=== PATIENT | male | born 1965 | race Caucasian/White ===

== ENCOUNTER 2018-05-17 18:11 | Emergency (ER) | payer SELFPAY ==
[2015-07-23 15:17] VITALS: Wt 86.2 kg
--- NOTE | 2018-05-17 18:24 | ER Report ---
History and Physical Time Seen By MD: 18:24 Hx. of Stated Complaint: PT HAS NOTICED INCREASED SWELLING IN BILATERAL LEGS FOR LAST COUPLE OF MONTHS, ALSO HAS HORSE VOICE WITH NO REASON HPI/ROS CHIEF COMPLAINT: Swelling to bilateral lower extremities, hoarse voice HISTORY OF PRESENT ILLNESS: 52-year-old male patient presents to emergency room with complaint of swelling to bilateral lower extremities. Patient states that this been going on for the past 3 months. He states he went to urgent care today to get checked out. They did do some lab work and then referred to the patient to the emergency room. He states that he needs to have a CT scan of his chest done. Patient states he's not had any chest pain, denies having shortness of breath. States that he has had a hoarse voice now for quite some time. He states that just came on spontaneously. He does chew chewing tobacco. He states that he does spit and swallow. He denies having any fevers, chills, nausea, vomiting or diarrhea. Patient states that his legs are typically swollen at the end of the day of work. He does work driving heavy equipment. He states that when he wakes the morning typically the swelling is gone. He denies having any persistent swelling, pain or redness in his legs. REVIEW OF SYSTEMS: Respiratory: No cough, no dyspnea. Cardiovascular: No chest pain, no palpitations. Gastrointestinal: No vomiting, no abdominal pain. Musculoskeletal: No back pain. Allergies: Coded Allergies: No Known Allergies (Verified Allergy, Mild, 05/17/18) Home Meds Active Scripts Lorazepam (ATIVAN) 0.5 Mg Tablet, 0.5 MG PO Q6H Y for ANXIETY, #10 TAB 0 Refills Prov:AMERICO ALLEN MD 10/02/15 Omeprazole (OMEPRAZOLE) 20 Mg Capsule.dr, 1 CAP PO BID, #60 CAP 0 Refills Prov:AMERICO ALLEN MD 10/02/15 Sucralfate (CARAFATE) 1 Gm Tablet, 1 GM PO QID, #120 TAB 0 Refills Prov:AMERICO ALLEN MD 10/02/15 Past Medical/Surgical History Patient has a past medical history of esophageal varices, alcohol use. Patient has a surgical history of brain surgery for subdural hematoma. Reviewed Nurses Notes: Yes Hx Smoking: No Smoking Status: Never Smoker Exposure to Second Hand Smoke?: Yes (on occasion) Hx Substance Use Disorder: No Hx Alcohol Use: Yes (4-5 BEERS/DAY) Constitutional Vital Sign - Last 24 Hours 05/17/18 05/17/18 05/17/18 05/17/18 18:26 18:30 18:41 18:56 Pulse 89 76 75 Resp 20 16 10 B/P (MAP) 119/81 (94) Pulse Ox 97 93 94 05/17/18 05/17/18 05/17/18 05/17/18 19:00 19:11 19:26 19:30 Pulse 79 72 Resp 17 20 B/P (MAP) 121/81 (94) 123/83 (96) Pulse Ox 97 94 05/17/18 05/17/18 05/17/18 05/17/18 19:41 20:00 20:05 20:30 Pulse 72 80 Resp 18 22 B/P (MAP) 129/85 (100) 119/79 (92) Pulse Ox 94 98 05/17/18 05/17/18 05/17/18 05/17/18 20:35 20:40 21:00 21:10 Pulse 77 78 91 Resp 25 22 21 B/P (MAP) 134/102 (113) Pulse Ox 95 98 87 Intake and Output 05/17/18 05/17/18 05/18/18 14:59 22:59 06:59 Intake Total 1000 ml Balance 1000 ml Physical Exam General Appearance: The patient is alert, has no immediate need for airway protection and no current signs of toxicity. Respiratory: Chest is non tender, lungs are clear to auscultation. Cardiac: regular rate and rhythm Gastrointestinal: Abdomen is soft and non tender, no masses, bowel sounds normal. Musculoskeletal: Neck: Neck is supple and non tender. Extremities have full range of motion and are non tender. Patient does have trace edema to the bilateral lower extremities, is nonpitting. Skin: No rashes or lesions. DIFFERENTIAL DIAGNOSIS: After history and physical exam differential diagnosis was considered for DVT, PE, dependent edema. Medical Decision Making Data Points Laboratory Hematology Test 05/17/18 00:00 05/17/18 18:50 Troponin I < 0.012 ng/ml Stool Occult Blood (IFOB) Negative (NEGATIVE) Chemistry Test 05/17/18 00:00 05/17/18 18:50 Troponin I < 0.012 ng/ml Stool Occult Blood (IFOB) Negative (NEGATIVE) EKG/Imaging Imaging EXAMINATION: CTA of the chest with IV contrast HISTORY: Elevated d-dimer. TECHNIQUE: Pulmonary embolus protocol - Thin axial CT images of the chest were obtained with IV contrast during maximal pulmonary arterial opacification. Reconstruction of the source data includes multiplanar 2D coronal and sagittal reconstructed images, and 3D coronal and sagittal MIP images. Data Center Manager images have been stored on PACS. One of the following dose optimization techniques was utilized in the performance of this exam: Automated exposure control; adjustment of the mA and/ or kV according to the patient's size; or use of an iterative reconstruction technique. Specific details can be referenced in the facility's radiology CT exam operational policy. Contrast: 75 mL of IV Isovue-370. COMPARISON: None. FINDINGS: Pulmonary arteries: The pulmonary arteries are well opacified, without suspicious filling defect. Heart, aorta, and great vessels: Normal caliber thoracic aorta, without aneurysm or dissection. Normal heart size. No pericardial effusion. Lungs and pleura: Subsegmental atelectasis in the right lower lobe. Slight atelectasis at the left base. Calcified granuloma in the right upper lobe. No suspicious focal consolidation. No pleural effusion or pneumothorax. The central airways are patent. Mediastinum and arnold: Small hiatal hernia. Visualized upper abdomen: Unremarkable. Chest wall: Negative. Bones: Negative. IMPRESSION: 1. No evidence of pulmonary embolism. 2. Mild atelectasis in the lower lungs. No suspicious focal consolidation. 3. No other acute findings in the chest. 4. Small hiatal hernia. Report Dictated By: Chilo Caldwell MD at 05/17/2018 8:25 PM Report E-Signed By: Chilo Caldwell MD at 05/17/2018 8:29 PM EXAMINATION: Bilateral Lower Extremity Venous Ultrasound HISTORY: Leg swelling. TECHNIQUE: Ultrasound evaluation of the bilateral lower extremity veins was performed with color and spectral Doppler and compression views. COMPARISON: None. FINDINGS: The bilateral common femoral, femoral, proximal deep femoral, popliteal, and segmentally visualized deep calf veins are patent and compressible, without evidence of intraluminal thrombus. The upper greater saphenous vein is patent bilaterally. IMPRESSION: No sonographic evidence of DVT in either leg. Report Dictated By: Chilo Caldwell MD at 05/17/2018 9:23 PM Report E-Signed By: Chilo Caldwell MD at 05/17/2018 9:24 PM ED Course/Re-evaluation ED Course Patient was admitted and examined, history and physical were obtained. Differential diagnoses were considered. On examination lungs are clear, heart is regular, abdomen soft nontender. Patient does have trace edema to bilateral lower extremities. I was able to review the labs were done at the urgent care. Patient did have an elevated d-dimer of 2.44, patient was also very anemic with a H&H of 8.7 and 27. Patient is not feeling lightheaded, he is not tachycardic he is not having any shortness of breath. BNP was elevated 217. I believe that is likely the underlying cause of his edema. Due to the elevated d-dimer a CT pulmonary angiogram was done. The results were negative for PE. An occult stool was done for the low H&H. That was also negative. I did get a troponin and EKG. EKG showed a normal sinus rhythm and troponin was negative. An ultrasound was done of the bilateral lower extremities. That was also negative for DVTs. I discussed the findings with the patient. We will go ahead and discharge him home at this time. I do worry about his anemia, however with him being a symptomatically this time I will go ahead and have him follow-up outpatient with Dr. Mello for endoscopy and colonoscopy. I do have concerns about a possible malignancy in the throat with the hoarse voice. I do believe that he needs to have a scoping done by ENT. I will go ahead and refer the patient to Dr. Caldwell, ENT. Patient is return to the emergency room if condition worsens. He is to follow-up with his primary care provider in the next 1-2 weeks. Patient verbalized understanding and agreement with plan. Decision to Disposition Date: May 17, 2018 Decision to Disposition Time: 21:18 Depart Departure Latest Vital Signs Vital Signs Date Time Temp Pulse Resp B/P (MAP) Pulse Ox O2 Delivery O2 Flow Rate FiO2 05/17/18 21:10 91 21 87 05/17/18 21:00 134/102 (113) Impression: Primary Impression: Dependent edema Condition: Improved Disposition: HOME OR SELF-CARE Referrals: CHILO CALDWELL JR, MD, JOHN A MD Patient Instructions: Leg Edema (ED) Additional Instructions: Increase exercise when you are at work. Wear the compression stockings when you are at work. I would like you to follow up with Dr. Mello for your anemia. Follow up with Dr. Caldwell, ENT, for your hoarse voice. Return to the ER if condition worsens. VALDEMAR APPIAH [facility] May 17, 2018 18:24
[2018-05-17] MEDS ORDERED: NS(*) 0.9% 1000 ML BAG 1,000 ML IV ONE (18:41)
[2018-05-17] MEDS ORDERED: IOPAMIDOL 76% 75 ML INFUS BTL 75 ML ONE (19:03)
[2018-05-17] MEDS ORDERED: NS 0.9% 25 ML BAG 50 ML ONE (19:03)
--- NOTE | 2018-05-17 19:16 | EKG ---
FACILITY: [facility] [place] PATIENT NAME: MARK ROJO : [id number] MR: [id number] V: [id number] EXAM DATE: ORDERING PHYSICIAN: VALDEMAR APPIAH TECHNOLOGIST: MAILE Lyn Reason : CARDIAC Blood Pressure : / mmHG Vent. Rate : 077 BPM Atrial Rate : 077 BPM P-R Int : 216 ms QRS Dur : 088 ms QT Int : 398 ms P-R-T Axes : 025 -23 007 degrees QTc Int : 450 ms Sinus rhythm with 1st degree AV block Left axis deviation Abnormal ECG When compared with ECG of 21-JUL-2015 12:50, [place] interval has increased Confirmed by SHIV SCOTT ([id number]) on 05/18/2018 6:15:16 AM Referred By: Confirmed By:SHIV SCOTT
--- NOTE | 2018-05-17 20:33 | RADIOLOGY IMAGING REPORT ---
FACILITY: [facility] PATIENT NAME: Sim Alba : 1965 MR: [id number] V: [id number] EXAM DATE: ORDERING PHYSICIAN: VALDEMAR APPIAH TECHNOLOGIST: Location: [facility] Patient: Sim Alba : 1965 Visit/Account:[id number] Date of Sevice: 05/17/2018 EXAMINATION: CTA of the chest with IV contrast HISTORY: Elevated d-dimer. TECHNIQUE: Pulmonary embolus protocol - Thin axial CT images of the chest were obtained with IV con trast during maximal pulmonary arterial opacification. Reconstruction of the source data includes mul tiplanar 2D coronal and sagittal reconstructed images, and 3D coronal and sagittal MIP images. Repres entative images have been stored on PACS. One of the following dose optimization techniques was utilized in the performance of this exam: Autom ated exposure control; adjustment of the mA and/or kV according to the patient's size; or use of an i terative reconstruction technique. Specific details can be referenced in the facility's radiology C T exam operational policy. Contrast: 75 mL of IV Isovue-370. COMPARISON: None. FINDINGS: Pulmonary arteries: The pulmonary arteries are well opacified, without suspicious filling defect. Heart, aorta, and great vessels: Normal caliber thoracic aorta, without aneurysm or dissection. Norm al heart size. No pericardial effusion. Lungs and pleura: Subsegmental atelectasis in the right lower lobe. Slight atelectasis at the left b ase. Calcified granuloma in the right upper lobe. No suspicious focal consolidation. No pleural effus ion or pneumothorax. The central airways are patent. Mediastinum and arnold: Small hiatal hernia. Visualized upper abdomen: Unremarkable. Chest wall: Negative. Bones: Negative. IMPRESSION: 1. No evidence of pulmonary embolism. 2. Mild atelectasis in the lower lungs. No suspicious focal consolidation. 3. No other acute findings in the chest. 4. Small hiatal hernia. Report Dictated By: Chilo Head MD at 05/17/2018 8:25 PM Report E-Signed By: Chilo Head MD at 05/17/2018 8:29 PM [id number]
[2018-05-17 21:00] VITALS: BP 134/102
--- NOTE | 2018-05-17 21:29 | RADIOLOGY IMAGING REPORT ---
FACILITY: [facility] - [place] PATIENT NAME: Sim Alba : 1965 MR: [id number] V: [id number] EXAM DATE: ORDERING PHYSICIAN: VALDEMAR APPIAH TECHNOLOGIST: Location: [facility] - [place] Patient: Sim Alba : 1965 Visit/Account:[id number] Date of Sevice: 05/17/2018 EXAMINATION: Bilateral Lower Extremity Venous Ultrasound HISTORY: Leg swelling. TECHNIQUE: Ultrasound evaluation of the bilateral lower extremity veins was performed with color and spectral Doppler and compression views. COMPARISON: None. FINDINGS: The bilateral common femoral, femoral, proximal deep femoral, popliteal, and segmentally visualized d eep calf veins are patent and compressible, without evidence of intraluminal thrombus. The upper gre ater saphenous vein is patent bilaterally. IMPRESSION: No sonographic evidence of DVT in either leg. Report Dictated By: Chilo Head MD at 05/17/2018 9:23 PM Report E-Signed By: Chilo Head MD at 05/17/2018 9:24 PM [id number]
== END 2018-05-17 21:35 | disposition home or self-care (01) ==
LOC: ER 19:29
DX: R60.9 Edema, unspecified (principal); I44.0 Atrioventricular block, first degree
CPT/HCPCS: 82274; 84484; 93005; 96360; 99284; J7030; Q9967; 71275; 93970

== ENCOUNTER → 2018-05-17 | Outpatient (REF) | payer SELFPAY ==
[2015-07-23 15:17] VITALS: BMI 21.2
[~2018-05-17] MED LIST: AZIT500T47 PO; HYCOTUSS; IBU800 PO; LOR5 PO; LORA-1455 PO; OMEP-125 PO; PANT40TA65 PO; SUCR1TAB51 PO; SUCR1TAB85 PO
[2018-05-17 12:21] LABS: PLATELET COUNT, AUTOMATED 214 K/uL (150-450)
== END ==
PROVIDERS: ATTEND Family Medicine
DX: R19.07 Generalized intra-abdominal and pelvic swelling, mass and lump (principal); R60.0 Localized edema
CPT/HCPCS: 82040; 82247; 82310; 82374; 82435; 82565; 82947; 83880; 84075; 84132; 84155; 84295; 84450; 84460; 84520; 85025; 85379

== ENCOUNTER 2018-12-18 21:19 | Inpatient (IN) | payer SELFPAY ==
[~2018-12-18] VITALS: Ht 190.5 cm; Wt 98.0 kg
[~2018-12-18 21:19] MED LIST changes: -FURO-47 PO; -LACT10SO62 PO; -POTA-53 PO; -SPIR100T33 PO; -THIA100T20 PO
--- NOTE | 2018-12-18 21:36 | ER Report ---
History and Physical Time Seen By MD: 21:25 Hx. of Stated Complaint: weakness, jaundice, swelling. HPI/ROS CHIEF COMPLAINT: Jaundice, confusion, weakness HISTORY OF PRESENT ILLNESS: 53-year-old male with a history of alcoholic liver disease and varices last seen in May 2018. Brought in by EMS tonight after family became concerned because he seems altered and became more jaundiced over the last few days. He admits to consuming several beers today. She was incontinent of stool. He denies melena or bloody stools. REVIEW OF SYSTEMS: Respiratory: No cough, no dyspnea. Cardiovascular: No chest pain, no palpitations. Gastrointestinal: No vomiting, no abdominal pain. Musculoskeletal: No back pain. Allergies: Coded Allergies: No Known Allergies (Verified Allergy, Mild, 05/17/18) Home Meds Discontinued Scripts Lorazepam (ATIVAN) 0.5 Mg Tablet, 0.5 MG PO Q6H PRN for ANXIETY, #10 TAB 0 Refills Prov:AMERICO ALLEN MD 10/02/15 Omeprazole (OMEPRAZOLE) 20 Mg Capsule.dr, 1 CAP PO BID, #60 CAP 0 Refills Prov:AMERICO ALLEN MD 10/02/15 Sucralfate (CARAFATE) 1 Gm Tablet, 1 GM PO QID, #120 TAB 0 Refills Prov:AMERICO ALLEN MD 10/02/15 Reviewed Nurses Notes: Yes Old Medical Records Reviewed: Yes Hx Smoking: No Smoking Status: Never Smoker Exposure to Second Hand Smoke?: Yes (on occasion) Hx Substance Use Disorder: No Hx Alcohol Use: Yes (4-5 BEERS/DAY) Constitutional Vital Sign - Last 24 Hours 12/18/18 12/18/18 12/18/18 12/18/18 21:23 21:24 21:30 21:30 Temp 100.6 Pulse 97 Resp 22 B/P (MAP) 152/90 (110) 152/90 143/87 (105) Pulse Ox 85 O2 Delivery Room Air O2 Flow Rate 3.0 12/18/18 12/18/18 12/18/18 12/18/18 21:49 22:00 22:05 22:30 Pulse 92 190 B/P (MAP) 143/99 (114) 132/84 (100) Pulse Ox 94 12/18/18 12/18/18 12/18/18 12/18/18 22:35 23:00 23:05 23:30 Pulse 97 92 B/P (MAP) 133/80 (97) 133/85 (101) Pulse Ox 95 94 12/18/18 23:35 Pulse 92 Pulse Ox 94 Intake and Output 12/18/18 12/18/18 12/19/18 15:00 23:00 07:00 Intake Total 100 ml Balance 100 ml Physical Exam Vital signs stable, hypoxic, pulse ox 85% on room air, febrile, temperature 100.4 General Appearance: The patient is alert, has no immediate need for airway protection and no current signs of toxicity. Mild confusion, grossly jaundiced appearing, ascites noted in belly HEENT: Pupils equal and round no injection. Icteric sclera, oropharynx with fetid odor. Respiratory: Chest is non tender, lungs are clear to auscultation. Cardiac: regular rate and rhythm Gastrointestinal: Abdomen is soft and non tender, no masses, bowel sounds normal. Musculoskeletal: Neck: Neck is supple and non tender. Extremities have full range of motion and are non tender., 3+ edema bilaterally Skin: No rashes or lesions. DIFFERENTIAL DIAGNOSIS: After history and physical exam differential diagnosis was considered for adult fever including but not limited to viral syndromes including influenza, urinary tract infection, pneumonia and sepsis. End-stage alcoholic liver disease, SBP, elevated ammonia level Medical Decision Making Data Points Result Diagram: 12/19/18 1459 12/19/18 0518 Laboratory Hematology Test 12/18/18 21:20 12/18/18 22:27 12/18/18 22:30 12/18/18 22:34 Ovalocytes 1+ Schistocytes 1+ Activated Partial Thromboplast Time 48 seconds (23-35) Ammonia 27 UMOL/L (9-33) Amylase Level 41 U/L (0-110) Lipase 326 U/L (23-300) Serum Alcohol 103 mg/dl Body Fluid Type ascites Body Fluid WBC 72 Body Fluid RBC 6534 Body Fluid Neutrophils 11 % Body Fluid Lymphocytes 25 % Body Fluid Monocytes 64 % Body Fluid Glucose 94 mg/dl Body Fluid Total Protein < 2.0 G/dl Stool Occult Blood (IFOB) Negative (NEGATIVE) Urine Color Radha Urine Clarity Clear Urine pH 6.0 pH (4.8-9.5) Urine Specific [place] 1.015 Urine Protein Negative mg/dL (NEGATIVE) Urine Glucose (UA) Negative mg/dL (NEGATIVE) Urine Ketones Negative mg/dL (NEGATIVE) Urine Blood Negative (NEGATIVE) Urine Nitrite Negative (NEGATIVE) Urine Bilirubin Negative (NEGATIVE) Urine Urobilinogen 4.0 mg/dL (0.2-1.9) Urine Leukocyte Esterase Negative (NEGATIVE) Urine RBC 1 /HPF (0-2/HPF) Urine WBC 2 /HPF (0-5/HPF) Urine Squamous Epithelial Cells Few /LPF (</=FEW) Urine Bacteria Negative /HPF (NONE-FEW) Urine Mucus None /HPF (NONE-FEW) Chemistry Test 12/18/18 21:20 12/18/18 22:27 12/18/18 22:30 12/18/18 22:34 Ovalocytes 1+ Schistocytes 1+ Activated Partial Thromboplast Time 48 seconds (23-35) Ammonia 27 UMOL/L (9-33) Amylase Level 41 U/L (0-110) Lipase 326 U/L (23-300) Serum Alcohol 103 mg/dl Body Fluid Type ascites Body Fluid WBC 72 Body Fluid RBC 6534 Body Fluid Neutrophils 11 % Body Fluid Lymphocytes 25 % Body Fluid Monocytes 64 % Body Fluid Glucose 94 mg/dl Body Fluid Total Protein < 2.0 G/dl Stool Occult Blood (IFOB) Negative (NEGATIVE) Urine Color Radha Urine Clarity Clear Urine pH 6.0 pH (4.8-9.5) Urine Specific [place] 1.015 Urine Protein Negative mg/dL (NEGATIVE) Urine Glucose (UA) Negative mg/dL (NEGATIVE) Urine Ketones Negative mg/dL (NEGATIVE) Urine Blood Negative (NEGATIVE) Urine Nitrite Negative (NEGATIVE) Urine Bilirubin Negative (NEGATIVE) Urine Urobilinogen 4.0 mg/dL (0.2-1.9) Urine Leukocyte Esterase Negative (NEGATIVE) Urine RBC 1 /HPF (0-2/HPF) Urine WBC 2 /HPF (0-5/HPF) Urine Squamous Epithelial Cells Few /LPF (</=FEW) Urine Bacteria Negative /HPF (NONE-FEW) Urine Mucus None /HPF (NONE-FEW) Coagulation Test 12/18/18 21:20 Activated Partial Thromboplast Time 48 seconds Toxicology Test 12/18/18 21:20 Serum Alcohol 103 mg/dl Urinalysis Test 12/18/18 22:34 Urine Color Radha Urine Clarity Clear Urine pH 6.0 pH (4.8-9.5) Urine Specific [place] 1.015 Urine Protein Negative mg/dL (NEGATIVE) Urine Glucose (UA) Negative mg/dL (NEGATIVE) Urine Ketones Negative mg/dL (NEGATIVE) Urine Blood Negative (NEGATIVE) Urine Nitrite Negative (NEGATIVE) Urine Bilirubin Negative (NEGATIVE) Urine Urobilinogen 4.0 mg/dL (0.2-1.9) Urine Leukocyte Esterase Negative (NEGATIVE) Urine RBC 1 /HPF (0-2/HPF) Urine WBC 2 /HPF (0-5/HPF) Urine Squamous Epithelial Cells Few /LPF (</=FEW) Urine Bacteria Negative /HPF (NONE-FEW) Urine Mucus None /HPF (NONE-FEW) Microbiology Microbiology Date/Time Source Procedure Growth Status 12/18/18 21:57 Blood Peripheral Draw Blood Culture - Preliminary NO GROWTH AFTER 1 DAY, REINCUBATED Resulted 12/18/18 21:45 Blood Peripheral Draw Blood Culture - Preliminary NO GROWTH AFTER 1 DAY, REINCUBATED Resulted 12/18/18 22:27 Ascites Fluid Gram Stain - Final Resulted 12/18/18 22:27 Ascites Fluid Body Fluid Culture - Preliminary NO GROWTH SO FAR, SET LATE. REINCUBATED Resulted 12/18/18 22:27 Ascites Fluid Anaerobic Culture Pending Resulted EKG/Imaging Imaging X-ray: Single view portable chest x-ray was obtained. I viewed the images myself on the PACS system. My interpretation of the images is: No infiltrate, no effusion, elevated right hemidiaphragm,? Fluid in the right fissure. comparison to previous chest x-ray dated 01/02/08. The radiologist interpretation had no clinically significant variation from this interpretation. ED Course/Re-evaluation Clinical Indication for ER IV: IV Access ED Course Patient was admitted to an examination room. H&P was done. The differential diagnoses was considered. On clinical examination. Patient with gross ascites, fever and jaundice. His H&H is low at 6.6 and 21.9. His lactate is elevated to 4.8. I'm concerned he has sepsis. The source is unclear. His chest x-ray shows no obvious infiltrate. Patient denies urinary tract symptoms. A urinalysis is yet to be obtained. Patient is hypoxic acquiring 3 L to get his saturations in the low 90s. He is gross abdominal distention with tense ascites likely restricting his respiratory functional capacity. 12/18/2018 10:33:55 pm Procedure: Paracentesis. Indication: Diagnostic ascites fluid collection for SBP After written informed consent I performed a paracentesis. I explained to the patient the risk included infection, bleeding, bowel injury, and hypotension. The area on the abdomen was prepped and draped in the usual fashion. The area was anesthetized with 1% lidocaine with epinephrine with adequate anesthesia. With a paracentesis needle the left lower quadrant was aspirated. The appear ance of the fluid was straw-colored yellow, slightly cloudy. The volume that was aspirated was 60 mL cc of fluid. The patient tolerated the procedure well. There were no complications. The procedure was performed by myself. 12/18/2018 10:50:58 pm case was discussed with Dr. Flannery hospitalist on-call, who accepts the patient for admission to ICU for close monitoring . He has suspected sepsis with a lactate of 4.8, gross anemia, likely a GI bleed. Decision to Disposition Date: Dec 18, 2018 Decision to Disposition Time: 22:04 Critical Care Time I spent a total of 90 minutes of critical care time in obtaining history, performing a physical exam, bedside monitoring of interventions, collecting and interpreting tests and discussion with consultants but not including time spent performing procedures. Depart Departure Latest Vital Signs Vital Signs Date Time Temp Pulse Resp B/P (MAP) Pulse Ox O2 Delivery O2 Flow Rate FiO2 12/18/18 23:35 92 94 12/18/18 23:30 133/85 (101) 12/18/18 21:30 3.0 12/18/18 21:24 100.6 22 Room Air Impression: Primary Impression: Altered mental status, unspecified Additional Impressions: Fever Anemia Acute on chronic alcoholic liver disease History of esophageal varices Coagulopathy Condition: Improved Disposition: Admitted from ER New Scripts No Active Prescriptions or Reported Meds Problem Qualifiers Primary Impression: Altered mental status, unspecified Altered mental status type: stupor Qualified Codes: R40.1 - Stupor Additional Impressions: Fever Fever type: unspecified Qualified Codes: R50.9 - Fever, unspecified Anemia Anemia type: unspecified type Qualified Codes: D64.9 - Anemia, unspecified DARNELL VALENTINE DO Dec 18, 2018 21:35
[2018-12-18 21:58] LABS: INR 2.46
[2018-12-18 22:11] LABS: PLATELET COUNT, AUTOMATED 117 K/uL (150-450)
[2018-12-18] MEDS ORDERED: PANTOPRAZOLE SOD(*)40 MG VIAL 80 MG in NS(*) 0.9% 100 ML BAG 100 ML IVPB ONE (22:20)
--- NOTE | 2018-12-18 22:31 | RADIOLOGY IMAGING REPORT ---
FACILITY: [facility] PATIENT NAME: Sim Alba : 1965 MR: [id number] V: [id number] EXAM DATE: ORDERING PHYSICIAN: DARNELL VALENTINE TECHNOLOGIST: Location: [facility] [place] Patient: Sim Alba : 1965 Visit/Account:[id number] Date of Sevice: 12/18/2018 PORTABLE CHEST: Indication: Fever and altered mental status. Technique: A single frontal film was obtained. Comparison: CT scan dated 05/17/2018. Skeletal and soft tissue structures: Intact and unremarkable. Heart and mediastinum: Within normal limits. Lung [place]oria: There is chronic elevation of the right hemidiaphragm, with minimal atelectasis at the r ight base. No acute parenchymal process is identified. There is no vascular congestion. Pleural spaces: Unremarkable. Impression: No acute process. Report Dictated By: Anthony Jackson MD at 12/18/2018 10:23 PM Report E-Signed By: Anthony Jackson MD at 12/18/2018 10:27 PM [id number]
[2018-12-18] MEDS: PANTOPRAZOLE SOD(*)40 MG VIAL 80 MG in NS(*) 0.9% 100 ML BAG 100 ML IV SCH (22:38)
[2018-12-19] VITALS (41 sets, daily range): BP systolic 122–152; BP diastolic 75–99; BMI 27.0
[2018-12-19] MEDS ORDERED: cefTRIAXone 2 GM VIAL IVP SCH ×2 (00:40→23:00)
[2018-12-19] MEDS ORDERED: ALBUMIN HUMAN 5% 250 ML BTL 250 ML IVPB ONE (00:40)
[2018-12-19] MEDS ORDERED: INFLUENZA VIRUS VAC 0.5ML SYR IM ONLY ONE (00:55)
[2018-12-19] MEDS ORDERED: LORazepam 1 MG TAB PO PRN (01:00)
[2018-12-19] MEDS ORDERED: LORazepam 2 MG/ML VIAL IVP PRN (01:00)
--- NOTE | 2018-12-19 01:03 | History & Physical ---
History of Present Illness Chief Complaint Altered mental status History of Present Illness This patient was brought to the emergency room after his girlfriend called EMS because of altered mental status. The have also noted that he has been more jaundice over the last several days. History Problems: (1) GI bleeding Status: Acute (2) History of esophageal varices Status: Acute Home Meds Discontinued Scripts Lorazepam (ATIVAN) 0.5 Mg Tablet, 0.5 MG PO Q6H PRN for ANXIETY, #10 TAB 0 Refills Prov:AMERICO ALLEN MD 10/02/15 Omeprazole (OMEPRAZOLE) 20 Mg Capsule.dr, 1 CAP PO BID, #60 CAP 0 Refills Prov:AMERICO ALLEN MD 10/02/15 Sucralfate (CARAFATE) 1 Gm Tablet, 1 GM PO QID, #120 TAB 0 Refills Prov:AMERICO ALLEN MD 10/02/15 Allergies: Coded Allergies: No Known Allergies (Verified Allergy, Mild, 05/17/18) Hx Smoking: No Smoking Status: Never Smoker Exposure to Second Hand Smoke?: Yes (on occasion) Caffeine Intake: Coffee, Soda Caffeine/Cups Per Day: 2 Hx Alcohol Use: Yes (4-5 BEERS/DAY) Hx Substance Use Disorder: No Review of Systems All Systems Reviewed/Normal: Yes, Except as Noted Neurological: Confusion Exam Vital Signs Vital Signs Date Time Temp Pulse Resp B/P (MAP) Pulse Ox O2 Delivery O2 Flow Rate FiO2 12/18/18 23:35 92 94 12/18/18 23:30 133/85 (101) 12/18/18 21:24 100.6 22 Room Air Neuro: No Gross deficits Eyes: PERRLA Cardiovascular: Regular Rate and Rhythm Respiratory: Clear to Auscultation GI: Other (Distended.) Extremities: Edema Integumentary: Jaundice; No Cyanosis Medical Decision Making Data Points Result Diagram: 12/18/18211912/18/182119 Assessment and Plan Problems: (1) GI bleeding Status: Acute Assessment & Plan: He does have a history of varices, but reports no active bleeding. He has been started on a Protonix infusion. (2) Anemia due to GI blood loss Assessment & Plan: He is scheduled to receive 2 units of red cells. Two additional units have been crossed. (3) Bacterial peritonitis Assessment & Plan: He did have a fever and confusion on admission. We have started him on empiric treatment with ceftriaxone and albumin. Ascitic fluid has been sent for analysis. (4) Acute on chronic alcoholic liver disease Status: Acute Assessment & Plan: He does appear to have end stage liver disease. He has been placed on CIWA protocol and thiamine replacement. (5) Coagulopathy Status: Acute Assessment & Plan: Secondary to liver disease. (6) Hyponatremia Status: Resolved Assessment & Plan: A repeat chemistry panel is ordered for the morning. (7) Hoarseness Assessment & Plan: He was advised to follow up with ENT during his last ER admission. He never did follow up. We may need to consider a CT scan or ENT consult depending on his course. Venous Thromboembolism Antithrombotics Is Pt On Any Antithrombotics?: No Exam Sepsis Risk: No Definite Risk RADHA LI DO Dec 19, 2018 01:03
[2018-12-19] MEDS: NS(*) 0.9% 500 ML BAG 500 ML IV PRN ×3 (02:17→09:12)
[2018-12-19] MEDS: PANTOPRAZOLE SOD(*)40 MG VIAL 80 MG in NS(*) 0.9% 100 ML BAG 100 ML IV SCH ×2 (03:00→14:43)
[2018-12-19 05:27] LABS: PLATELET COUNT, AUTOMATED 86 K/uL (150-450)
[2018-12-19 05:36] LABS: INR 2.86
[2018-12-19] MEDS ORDERED: MAGNESIUM SUL* 2 GM/50 ML IVPB 50 ML IVPB ONE (06:35)
[2018-12-19] MEDS: THIAMINE HCL 200 MG/2 ML INJ IVP SCH (09:14)
[2018-12-19] MEDS: FOLIC ACID 1 MG TAB PO SCH (10:22)
--- NOTE | 2018-12-19 10:57 | RADIOLOGY IMAGING REPORT ---
FACILITY: [facility] PATIENT NAME: Sim Alba : 1965 MR: [id number] V: [id number] EXAM DATE: ORDERING PHYSICIAN: DAJA CARRILLO TECHNOLOGIST: Location: [facility] Patient: Sim Alba : 1965 Visit/Account:[id number] Date of Sevice: 12/19/2018 LIVER History: Elevated bilirubin. Increased abdominal girth. Evaluate for ascites. Comparison study: None Procedure: There has been satisfactory and complete grayscale ultrasonic evaluation of the abdomen. Findings: Liver: The liver has diffusely increased echotexture suggestive of fatty infiltration. There is ascit es throughout the abdomen. There appears to be hepatopedal blood flow in the main portal vein but it is not optimally demonstrated. Biliary: The gallbladder is normal and there is no gallstone disease or biliary ductal dilatation. T he sonographic Bloom sign is negative. The common bile duct cannot be seen for accurate measurement but there is no extrahepatic dilatation so far as visualized. Pancreas: The pancreas is obscured due to ascites, increased echotexture of the liver and overlying b owel gas. Kidneys: There is no hydronephrosis on the right side. Aorta and IVC: Flow is identified in both the aorta and IVC. IMPRESSION: 1. Increased echotexture of the liver suggestive of cirrhosis and/or fatty infiltration. Note that th e portal vein appears to have hepatopedal blood flow. 2. Normal-appearing gallbladder. Note, bile duct cannot be seen. 3. Moderate ascites. Report Dictated By: Sanjay Prasad MD at 12/19/2018 10:51 AM Report E-Signed By: Sanjay Prasad MD at 12/19/2018 10:52 AM WSN:[id number]
--- NOTE | 2018-12-19 13:13 | Hospitalist Progress Note ---
Subjective Progress Notes Subjective 53M admitted for AMS, jaundice, fever. BERENICE overnight, no confusion this am, + asterixis. Denies abdominal pain, no further fever. Patient Complains of: Neurological: No: Syncope Respiratory: No: Cough Gastrointestinal: No Nausea, No Vomiting Physical Exam Vital Signs Date Time Temp Pulse Resp B/P (MAP) Pulse Ox O2 Delivery O2 Flow Rate FiO2 12/19/18 12:26 98.6 94 23 139/83 12/19/18 11:12 92 Nasal Cannula 2.0 Intake and Output 12/19/18 07:00 Intake Total 960 ml Output Total 550 ml Balance 410 ml Intake IV Total 460 ml Blood Product 500 ml Output Urine Total 550 ml General Appearance: Awake, No Acute Distress, Afebrile Neuro: No Gross deficits (+ asterixis) Respiratory: No Respiratory Distress GI: Other (+ fluid wave, dull to percussion, protuberant) Extremities: Soft and Non Tender, Warm, Pulses, Perfused, Edema Integumentary: Jaundice (+ spider hemangiomas) Result Diagram: 12/19/1851712/19/18517 Assessment and Plan Problems: (1) Acute on chronic alcoholic liver disease Status: Acute Assessment & Plan: He does appear to have end stage liver disease. He has been placed on CIWA protocol and thiamine replacement. US shows evidence of cirrhosis. Hepatitis panel pending. (2) GI bleeding Status: Acute Assessment & Plan: He does have a history of varices, but reports no active bleeding. He has been started on a Protonix infusion. (3) Fever Status: Acute Assessment & Plan: Resolved, likely due to viral infection. He did have a fever and confusion on admission. No focal signs of infection. Was started him on empiric treatment with ceftriaxone and albumin. Ascitic fluid does not appear to be infected, will discontinue antibiotic and observe. (4) Anemia due to GI blood loss Assessment & Plan: Post 4U PRBC no active bleeding. Will need colonoscopy to further evaluate. (5) Coagulopathy Status: Acute Assessment & Plan: Secondary to liver disease. (6) Hyponatremia Status: Resolved Assessment & Plan: Chronic, secondary to liver disease. (7) Hoarseness Assessment & Plan: He was advised to follow up with ENT during his last ER admission. He never did follow up. We may need to consider a CT scan or ENT consult depending on his course. Exam Sepsis Risk: Severe Sepsis Risk Problem Qualifiers (1) Fever: Fever type: unspecified Qualified Codes: R50.9 - Fever, unspecified DAJA HEATON DO Dec 19, 2018 13:13
[2018-12-19] MEDS ORDERED: LACTULOSE 10 GM/15 ML UDCUP PO ONE (15:00)
[2018-12-20] VITALS (24 sets, daily range): BP systolic 91–133; BP diastolic 60–85; Ht 190.5 cm; Wt 98.0 kg
[2018-12-20] MEDS: PANTOPRAZOLE SOD(*)40 MG VIAL 80 MG in NS(*) 0.9% 100 ML BAG 100 ML IV SCH ×3 (00:54→21:25)
[2018-12-20 05:22] LABS: PLATELET COUNT, AUTOMATED 76 K/uL (150-450)
[2018-12-20] MEDS: NS(*) 0.9% 500 ML BAG 500 ML IV PRN ×2 (05:53→21:25)
--- NOTE | 2018-12-20 08:40 | Hospitalist Progress Note ---
Subjective Progress Notes Subjective Patient is awake and alert. No fever. No appetite. Physical Exam Vital Signs Date Time Temp Pulse Resp B/P (MAP) Pulse Ox O2 Delivery O2 Flow Rate FiO2 12/20/18 06:12 76 14 127/77 (94) 92 Nasal Cannula 3.0 12/20/18 04:01 97.8 Intake and Output 12/20/18 06:59 Intake Total 2177 ml Output Total 1325 ml Balance 852 ml Intake Oral 450 ml IV Total 1227 ml Blood Product 500 ml Output Urine Total 1325 ml # Voids 1 General Appearance: Alert, Awake Neuro: No Gross deficits Eyes: Other (sclera icteric ) Cardiovascular: Regular Rate and Rhythm Respiratory: Other (scattered rhonchi and soft expiratory wheezes) Chest: No Tenderness GI: Other (Distended, but soft/nontender. Rare BS. Fluid wave is present.) : No CVA Tenderness Extremities: Warm, Perfused, Edema (2+ both LE) Psych: Alert & Oriented X3 Result Diagram: 12/20/1844412/20/18444 Assessment and Plan Problems: (1) Acute on chronic alcoholic liver disease Status: Acute Assessment & Plan: He does appear to have end-stage liver disease at this point. Most likely cause is chronic alcoholism. Viral and iron studies are pending. He has been placed on CIWA protocol and thiamine replacement. US shows evidence of cirrhosis. We discussed need to stay abstinent from alcohol and he reports understanding. Will have the substance abuse counselor meet with him as well. (2) GI bleeding Status: Acute Assessment & Plan: He does have a history of varices, but reports no active ble eding. He has been started on a Protonix infusion. He has not had any obvious bloody stools and occult blood was negative. (3) Fever Status: Acute Assessment & Plan: Resolved. He did have a fever and confusion on admission. No focal signs of infection. We did start him on empiric treatment with IV ceftriaxone and albumin. Ascitic fluid does not appear to be infected, but will continue antibiotic until culture negative. Question if fever may have been a short-lived viral syndrome. (4) Anemia due to GI blood loss Assessment & Plan: No apparent active bleeding. He has received 4 units PRBC. He will probably need endoscopy at some point to further evaluate. It does not appear he will need it at this time (unless evidence of acute hemorrhage). (5) Coagulopathy Status: Acute Assessment & Plan: Secondary to liver disease. (6) Hyponatremia Status: Resolved Assessment & Plan: Chronic, secondary to liver disease. (7) Hoarseness Assessment & Plan: He was advised to follow up with ENT during his last ER adm ission. He never did follow up. We may need to consider a CT scan or ENT consult depending on his course. Exam Sepsis Risk: No Definite Risk Problem Qualifiers (1) Fever: Fever type: unspecified Qualified Codes: R50.9 - Fever, unspecified SHIV SCOTT MD Dec 20, 2018 08:40
[2018-12-20] MEDS: FUROSEMIDE 40 MG TAB PO SCH (08:54)
[2018-12-20] MEDS: FOLIC ACID 1 MG TAB PO SCH (08:54)
[2018-12-20] MEDS: THIAMINE HCL 200 MG/2 ML INJ IVP SCH (08:56)
[2018-12-20] MEDS: LACTULOSE 10 GM/15 ML UDCUP PO SCH ×2 (08:57→21:25)
[2018-12-20] MEDS ORDERED: cefTRIAXone 2 GM VIAL IVP SCH (09:00)
[2018-12-20] MEDS: ALBUTEROL 2.5 MG/3 ML NEB NEB PRN ×2 (11:53→22:20)
--- NOTE | 2018-12-20 12:35 | Medical Nutrition Therapy ---
Nutrition Anthropometrics Height (Inches): 75.00 Height (Calculated Centimeters: [phone] Weight (Pounds): 216 Weight (Calculated Kilograms): 98.203 BMI: 27.1 Russ Nutrition Score: Very Poor Russ Nutrition Risk Score: 13 Dietary Referral Nutrition Risk Factors: Nutrition Risk Comment: Physical Findings Physical Appearance: Overweight BMI 25-29 Skin Appearance Skin Appearance: Edema Edema Location Modifier: Both Edema Location: ABDOMEN Type of Edema: Degree of Edema: 1+ Gastrointestinal Symptoms GI Symtoms: Tube Present: Bowel Sounds: Recent Bowel Pattern: Stool Characteristics: Nutritional Diagnosis Nutritional Risk Acuity 2: Liver Cirrhosis Nutritional Risk Acuity 3: Alcohol abuse, GI Bleed Past Medical History: Alcoholic liver disease, espophagial variceies, GI bleed Nutritional Acuity: 2-Moderate Nutrition Diagnosis: Inadequate Food Intake Nutrition Etiology: Physiological Causes Nutrition Problem/Etiology/Sym: Inadequate food intake related to physiological causes as evidenced by GI bleed and pt refusing meals. Energy Requirement: 2706 (MSJ, 1.1 TEF, 1.3 AF) Adjusted Energy Requirement Re: 2206 (-500kcal) Protein Requirement: 78 (0.8 g AA/kg of BW) Fluid Requirement: 2206 (1 ml/kcal of ABW) Diet Type: Diet as Tolerated ANTHONY/REG Nutrition Intervention: Cont diet as ordered, Encourage intake Drug: Diuretics Diet Comment To RSA: Offer nutritional supplement. Nutrition Monitoring & Eval Nutrition Goals: Eat 50-100% Meal RD Patient Assessment Time: [address] Assessment Type: RD Assessment Patient Nutrition Acuity: 2-Moderate Follow Up Date: Dec 23, 2018 Nutritional Comment: 12/19 Pt admitted with GI bleed, bacterail peritonities, with hx of alcoholic liver dieseas and esophagial varicies. Pt is jaundices. Reports drinking 4-5 beers/day. Nutritional significant labsL lipase 328, Alb 2.4, Hct 23.6, Hgb 7.5. Pt is currently NPO. Will cont to monitor. BK 12/20: Pt dx with jaundice, fever, no confusion or abdominal pain. Pt has decreased albumin (2.3), BUN (8), and creatinine (0.60) levels. Pt curently ANTHONY but refused last pt tray on 12/19. Offer nutritional supplement. Monitor intake. -JOSE ALFREDO KIRKLAND Dec 20, 2018 08:40
[2018-12-20] MEDS ORDERED: SPIRONOLACTONE 25 MG TAB PO SCH (15:00)
[2018-12-21] VITALS (8 sets, daily range): BP systolic 120–147; BP diastolic 71–99
[2018-12-21 05:14] LABS: INR 2.9
[2018-12-21 05:19] LABS: PLATELET COUNT, AUTOMATED 76 K/uL (150-450)
[2018-12-21] MEDS: PANTOPRAZOLE SOD 40 MG TABEC PO SCH ×2 (09:03→21:04)
[2018-12-21] MEDS: POTASSIUM CHL 10 MEQ TABCR PO SCH ×2 (09:03→16:47)
[2018-12-21] MEDS: FUROSEMIDE 40 MG TAB PO SCH (09:03)
[2018-12-21] MEDS: FOLIC ACID 1 MG TAB PO SCH (09:03)
[2018-12-21] MEDS: THIAMINE HCL 100 MG TAB PO SCH (09:03)
[2018-12-21] MEDS: SPIRONOLACTONE 25 MG TAB PO SCH (09:04)
[2018-12-21] MEDS: predniSONE 20 MG TAB PO SCH (09:04)
[2018-12-21] MEDS: LACTULOSE 10 GM/15 ML UDCUP PO SCH ×2 (09:04→21:04)
--- NOTE | 2018-12-21 10:16 | Antimicrobial Stewardship ---
Antimicrobial Stewardship Empiricly appropriate: Yes (SBP Treatment - Ceftriaxone) Significant PMH: Yes (EtOH Withdrawal) Comment Appropriate empiric therapy for potential SBP, final cultures back- (-), d/c antibiotics Approriate Cultures done: Yes (Peritoneal Fluid- (-) - d/c antibiotics) Comment Ceftriaxone for potential SBP, cultures negative --> d/c antibiotics LITA HEMPHILL Dec 21, 2018 10:16
[2018-12-21] MEDS ORDERED: EUCALYPTUS/MENTHOL LOZ MM PRN (13:15)
--- NOTE | 2018-12-21 13:37 | Hospitalist Progress Note ---
Subjective Progress Notes Subjective 53M admitted with ESLD. BERENICE overnight, slowly improving. Patient Complains of: Gastrointestinal: No Nausea, No Vomiting Physical Exam Vital Signs Date Time Temp Pulse Resp B/P (MAP) Pulse Ox O2 Delivery O2 Flow Rate FiO2 12/21/18 12:20 98.8 81 22 147/99 (115) 91 Nasal Cannula 3.0 Intake and Output 12/21/18 07:00 Intake Total 2039 ml Output Total 1070 ml Balance 969 ml Intake Oral 1050 ml IV Total 989 ml Output Urine Total 1070 ml # Voids 5 # Bowel Movements 4 General Appearance: Alert, Awake, No Acute Distress, Afebrile Neuro: No Gross deficits ENT: Normal Cardiovascular: Normal Rhythm & Peripheral Pulses Respiratory: Other (R lung wheezing) GI: Other (distended, + fluid wave) Extremities: Soft and Non Tender, Warm, Pulses, Perfused, Edema Integumentary: Jaundice Result Diagram: 12/21/1844112/21/18441 Assessment and Plan Problems: (1) Acute on chronic alcoholic liver disease Status: Acute Assessment & Plan: He does appear to have end-stage liver disease at this point. Most likely cause is chronic alcoholism. Viral and iron studies are pending. He has been placed on CIWA protocol and thiamine replacement. US shows evidence of cirrhosis. We discussed need to stay abstinent from alcohol and he reports understanding. Will have the substance abuse counselor meet with him as well. MELD 31 predicts 3 month 50% mortality. (2) GI bleeding Status: Acute Assessment & Plan: He does have a history of varices, but reports no active bleeding. He has been started on a Protonix infusion. He has not had any obvious bloody stools and occult blood was negative. (3) Fever Status: Acute Assessment & Plan: Resolved. He did have a fever and confusion on admission. No focal signs of infection. We did start him on empiric treatment with IV ceftriaxone and albumin. Ascitic fluid does not appear to be infected, ceftriaxone stopped. Question if fever may have been a short-lived viral syndrome. (4) Anemia due to GI blood loss Assessment & Plan: No apparent active bleeding. He has received 4 units PRBC. He will probably need endoscopy at some point to further evaluate. It does not appear he will need it at this time (unless evidence of acute hemorrhage). (5) Coagulopathy Status: Acute Assessment & Plan: Secondary to liver disease. (6) Hyponatremia Status: Resolved Assessment & Plan: Chronic, secondary to liver disease. (7) Hoarseness Assessment & Plan: He was advised to follow up with ENT during his last ER admission. He never did follow up. We may need to consider a CT scan or ENT consult depending on his course. Exam Sepsis Risk: No Definite Risk Problem Qualifiers (1) Fever: Fever type: unspecified Qualified Codes: R50.9 - Fever, unspecified DAJA HEATON DO Dec 21, 2018 13:37
[2018-12-22 01:40] VITALS: BP 137/87
[2018-12-22 04:10] VITALS: BP 143/86
[2018-12-22 06:24] LABS: PLATELET COUNT, AUTOMATED 79 K/uL (150-450)
[2018-12-22 07:43] VITALS: BP 132/82
[2018-12-22] MEDS: POTASSIUM CHL 10 MEQ TABCR PO SCH (08:38)
[2018-12-22] MEDS ORDERED: IOPAMIDOL 76% 100 ML INFUS BTL 100 ML ONE (08:42)
[2018-12-22 09:17] VITALS: BP 129/78
[2018-12-22] MEDS: predniSONE 20 MG TAB PO SCH (09:20)
[2018-12-22] MEDS: FUROSEMIDE 40 MG TAB PO SCH (09:20)
[2018-12-22] MEDS: FOLIC ACID 1 MG TAB PO SCH (09:20)
[2018-12-22] MEDS: PANTOPRAZOLE SOD 40 MG TABEC PO SCH (09:20)
[2018-12-22] MEDS: THIAMINE HCL 100 MG TAB PO SCH (09:20)
[2018-12-22] MEDS: SPIRONOLACTONE 25 MG TAB PO SCH (09:21)
--- NOTE | 2018-12-22 10:26 | RADIOLOGY IMAGING REPORT ---
FACILITY: [facility] PATIENT NAME: Sim Alba : 1965 MR: [id number] V: [id number] EXAM DATE: ORDERING PHYSICIAN: RADHA LI TECHNOLOGIST: Location: [facility] [place] Patient: Sim Alba : 1965 Visit/Account:[id number] Date of Sevice: 12/22/2018 CT neck with contrast Comparison: None Additional pertinent history: Hoarse voice TECHNIQUE: Multiple axial images were obtained from the mid portion of the brain through the superio r mediastinum with IV contrast. Coronal and sagittal reformatted images were obtained off the axial source data. One of the following dose optimization techniques was utilized in the performance of t his exam: Automated exposure control; adjustment of the mA and/or kV according to the patient's size; or use of an iterative reconstruction technique. Specific details can be referenced in the [facility] y's radiology CT exam operational policy. CONTRAST: 75 mL of Isovue-370 FINDINGS: Visualized portions of the brain parenchyma: Patient status post previous right temporal craniotomy Parotid glands/submandibular glands/thyroid: Negative Orbits: Negative Paranasal sinuses: Severe mucosal thickening involving both maxillary sinuses. Otherwise negative Parapharyngeal spaces: Negative Nasopharynx/oropharynx/hypopharynx: Negative Tonsillar pillars: Negative Oral tongue/tongue base: Negative True and false cords: Negative Lymph node assessment:Negative Surrounding soft tissues: Negative Vasculature: Mild calcified atherosclerotic plaque involving the thoracic aortic arch. Osseous structures: Negative Lung apices: Pleural-parenchymal changes involving both lung apices. IMPRESSION: 1. No acute process involving the neck. Report Dictated By: Jonathan Mar MD at 12/22/2018 10:15 AM Report E-Signed By: Jonathan Mar MD at 12/22/2018 10:21 AM WSN:[id number]
[2018-12-22] MEDS ORDERED: THIA100T20 PO (10:39)
[2018-12-22] MEDS ORDERED: FURO-47 PO (10:39)
[2018-12-22] MEDS ORDERED: SPIR100T33 PO (10:39)
[2018-12-22] MEDS ORDERED: PANT40TA65 PO (10:40)
--- NOTE | 2018-12-22 10:45 | Hospitalist Depart ---
Discharge Summary Reason for Hosp/Final Diag: (1) Acute on chronic alcoholic liver disease Status: Acute Hospital Course & Plan: He does appear to have end-stage liver disease at this point. Most likely cause is chronic alcoholism. He was on CIWA protocol, but never required treatment. He was also placed on thiamine supplements. (2) GI bleeding Status: Acute Hospital Course & Plan: He does have a history of varices, but reports no active bleeding. He was started on a Protonix. He has not had any obvious bloody stools and occult blood was negative. (3) Fever Status: Acute Hospital Course & Plan: He did have confusion and fever on admission. We were initially concerned for peritonitis, but his ascitic cultures were negative. We initially had him on ceftriaxone, but this has now been stopped. (4) Anemia due to GI blood loss Hospital Course & Plan: He received 4 units of red cells and his counts have been stable since. (5) Coagulopathy Status: Acute Hospital Course & Plan: Secondary to liver disease. (6) Hyponatremia Status: Resolved Hospital Course & Plan: Chronic, secondary to liver disease. (7) Hoarseness Hospital Course & Plan: A CT scan of the neck was unremarkable. Departure Latest Vital Signs Vital Signs 12/22/18 12/22/18 12/22/18 07:43 09:17 09:50 Temp 97.4 Pulse 84 Resp 22 B/P (MAP) 129/78 (95) Pulse Ox 95 O2 Delivery Nasal Cannula O2 Flow Rate 3.0 Weight (Pounds): 216 Weight (Ounces): 8.0 Result Diagram: 12/22/1860112/22/18601 Condition: Improved Discharge: Home, Self Care Discharge Instructions Home Meds Active Scripts Pantoprazole Sodium (PANTOPRAZOLE SODIUM) 40 Mg Tablet.dr, 40 MG PO BID, #60 TAB Prov:RADHA LI DO 12/22/18 Thiamine Hcl (VITAMIN B-1) 100 Mg Tablet, 100 MG PO QDAY, #30 TAB Prov:RADHA LI DO 12/22/18 Spironolactone (SPIRONOLACTONE) 100 Mg Tablet, 100 MG PO QDAY, #30 TAB Prov:RADHA LI DO 12/22/18 Furosemide (FUROSEMIDE) 40 Mg Tablet, 40 MG PO QDAY, #30 TAB Prov:RADHA LI DO 12/22/18 Discontinued Scripts Lorazepam (ATIVAN) 0.5 Mg Tablet, 0.5 MG PO Q6H PRN for ANXIETY, #10 TAB 0 Refi lls Prov:AMERICO ALLEN MD 10/02/15 Omeprazole (OMEPRAZOLE) 20 Mg Capsule.dr, 1 CAP PO BID, #60 CAP 0 Refills Prov:AMERCIO ALLEN MD 10/02/15 Sucralfate (CARAFATE) 1 Gm Tablet, 1 GM PO QID, #120 TAB 0 Refills Prov:AMERICO ALLEN MD 10/02/15 Diet: Regular Activity: As Tolerated Venous Thromboembolism Antithrombotics Is Pt On Any Antithrombotics?: No Problem Qualifiers (1) Fever: Fever type: unspecified Qualified Codes: R50.9 - Fever, unspecified RADHA LI DO Dec 22, 2018 10:45
--- NOTE | 2018-12-22 11:19 | NUR ---
Occupational Therapy Impression Independent bed mobility in/out. Mod (I) ambulation x200ft with RW. SBA ambulation x30ft with no assistive device, more unsteady. Independent LB dressing. Declined engagement in further ADLs. Pt reports no concerns with discharge home and declined need for additional services. Encouraged to obtain a RW. Educated on where to obtain in [place], verbalized understanding. No further skilled OT needs indicated at this time. Occupational Therapy Goals Patient's Goal
[2018-12-22 11:20] VITALS: BP 117/79
--- NOTE | 2018-12-22 14:41 | NUR ---
Physical Therapy Impression Pt seen by OT for eval earlier today and noted to deny any needs and refuses any equipment offered. PT arrived to offer eval services as well. Pt/girlfriend indicate that he will be fine at home and do not see the need for a walker, but state that they are aware of local resources to obtain one if needed in the future. Pt declines mobility assessment with PT and plans to d/c home at this time. Physical Therapy Goals Patient's Goals
[2018-12-22 15:09] VITALS: BP 119/84
--- NOTE | 2018-12-22 15:25 | NUR ---
pt's oxygen saturation between 89 and 90 percent on RA. Per documentation, pt RA saturation of 82 percent during the night. pt refusing home oxygen. d/c'd witout oxygen. Dr. Kirbys was notified and aware.
== END 2018-12-22 15:25 | disposition home or self-care (01) | DRG 433 ==
LOC: ER 21:23 → ICU 22:47 → UNDOADMIN 22:47 → ICU 12-19 → MED 12-21 15:00
PROVIDERS: ADMIT Family Medicine; ATTEND Family Medicine
PROC: 0W9G3ZX Drainage of Peritoneal Cavity, Percutaneous Approach, Diagnostic (ICD-10-PCS; principal; 2018-12-19)
PROC: 30233N1 Transfusion of Nonautologous Red Blood Cells into Peripheral Vein, Percutaneous Approach (ICD-10-PCS; 2018-12-19)
DX: K70.40 Alcoholic hepatic failure without coma (principal); K92.2 Gastrointestinal hemorrhage, unspecified; D62 Acute posthemorrhagic anemia; E87.1 Hypo-osmolality and hyponatremia; D68.4 Acquired coagulation factor deficiency; F10.288 Alcohol dependence with other alcohol-induced disorder; R49.0 Dysphonia
CPT/HCPCS: 36415; 49082; 70491; 71045; 76705; 80320; 81001; 82040; 82140; 82150; 82247; 82248; 82274; 82310; 82374; 82435; 82565; 82728; 82945; 82947; 82977; 83540; 83550; 83605; 83690; 83735; 84075; 84132; 84155; 84157; 84295; 84450; 84460; 84520; 85014; 85018; 85025; 85610; 85730; 86705; 86706; 86708; 86709; 86803; 86850; 86900; 86901; 86920; 87040; 87071; 87073; 87205; 87340; 89050; 94640; 96365; 96368; 97165; 99291; 99292; C9113; J0696; J3411; J3475; J7040; J7050; J7512; J7613; P9016; P9045; Q9967

== ENCOUNTER → 2018-12-18 | Outpatient (CLI) | payer SELFPAY ==
[~2018-12-18] MED LIST changes: +FURO-47 PO; +LACT10SO62 PO; +POTA-53 PO; +SPIR100T33 PO; +THIA100T20 PO
[2018-12-24 09:02] VITALS: BMI 28.6
== END ==
LOC: AMB 21:00
PROVIDERS: ATTEND Nurse Practitioner
DX: R53.1 Weakness (principal); R17 Unspecified jaundice; R14.0 Abdominal distension (gaseous); R09.02 Hypoxemia
CPT/HCPCS: A0425; A0427

== ENCOUNTER 2018-12-23 20:59 | Inpatient (IN) | payer SELFPAY ==
[~2018-12-23] VITALS: Ht 180.3 cm; Wt 93.2 kg
[~2018-12-23 20:59] MED LIST changes: -LACT10SO62 PO; -POTA-53 PO
[2018-12-23] MEDS ORDERED: LORazepam 2 MG/ML VIAL IVP ONE (21:15)
--- NOTE | 2018-12-23 21:19 | ER Report ---
History and Physical Time Seen By MD: 21:05 Hx. of Stated Complaint: 4PATIENT WAS D/C FROM [facility] YESTERDAY; HAS 3 SEIZURES IN THE LAST 15MIN TONIGHT; PATIENT STATES THAT HE HAS BEEN DRINKIN; 2 BEERS TODAY; PAIENT IS A/O X 3 HPI/ROS CHIEF COMPLAINT: Seizures HISTORY OF PRESENT ILLNESS: 53-year-old male cirrhotic chronic alcohol dependence, admitted to the hospital for jaundice and abdominal pain on the , discharge on the . Was at home today with family when he was noted to have 3 seizures within 15 minutes. Seizures were reportedly tonic clonic. When EMS arrived he was reportedly postictal. Upon arrival here he is awake. Patient does not recall seizures. He states he woke up feeling okay. He admits to chasity nelson 6 beers yesterday and 2 today. He denies having alcohol withdrawal seizures in the past. Patient denies headache, fever, chills, difficulty breathing, abdominal pain, nausea, vomiting, change in urination. He denies symptoms prior to or subsequent to seizure. He denies feeling tremulous. REVIEW OF SYSTEMS: Constitutional: No fever, no chills. Eyes: no blurred vision ENT: No sore throat. Cardiovascular: No chest pain, no palpitations. Respiratory: No cough, no shortness of breath. Gastrointestinal: No abdominal pain, no vomiting. Genitourinary: no dysuria Musculoskeletal: No back pain. Skin: No rashes. Neurological: No headache. Remainder of the 14 system rev: Yes Allergies: Coded Allergies: No Known Allergies (Verified Allergy, Mild, 05/17/18) Home Meds Active Scripts Pantoprazole Sodium (PANTOPRAZOLE SODIUM) 40 Mg Tablet.dr, 40 MG PO BID, #60 TAB Prov:RADHA LI DO 12/22/18 Thiamine Hcl (VITAMIN B-1) 100 Mg Tablet, 100 MG PO QDAY, #30 TAB Prov:RADHA LI DO 12/22/18 Spironolactone (SPIRONOLACTONE) 100 Mg Tablet, 100 MG PO QDAY, #30 TAB Prov:RADHA LI DO 12/22/18 Furosemide (FUROSEMIDE) 40 Mg Tablet, 40 MG PO QDAY, #30 TAB Prov:RADHA LI DO 12/22/18 Discontinued Scripts Lorazepam (ATIVAN) 0.5 Mg Tablet, 0.5 MG PO Q6H PRN for ANXIETY, #10 TAB 0 Refills Prov:AMERICO ALLEN MD 10/02/15 Omeprazole (OMEPRAZOLE) 20 Mg Capsule.dr, 1 CAP PO BID, #60 CAP 0 Refills Prov:AMERICO ALLEN MD 10/02/15 Sucralfate (CARAFATE) 1 Gm Tablet, 1 GM PO QID, #120 TAB 0 Refills Prov:AMERICO ALLEN MD 10/02/15 Reviewed Nurses Notes: Yes Old Medical Records Reviewed: Yes Hx Smoking: No Smoking Status: Never Smoker Exposure to Second Hand Smoke?: Yes Hx Substance Use Disorder: No Hx Alcohol Use: Yes (4-5 BEERS/DAY) Constitutional Vital Sign - Last 24 Hours 12/23/18 12/23/18 12/23/18 12/23/18 21:03 21:07 21:29 21:30 Temp 98.1 Pulse 85 113 Resp 18 20 B/P (MAP) 141/94 141/94 (110) 129/93 (105) Pulse Ox 89 O2 Delivery Room Air 12/23/18 12/23/18 12/23/18 12/23/18 21:35 22:05 22:30 22:35 Pulse 84 85 83 Resp 21 15 18 B/P (MAP) 117/86 (96) Pulse Ox 97 93 95 12/23/18 12/23/18 12/23/18 12/23/18 22:40 23:28 23:30 23:40 Pulse 84 74 Resp 14 17 B/P (MAP) 97/84 (88) 117/85 (96) Pulse Ox 96 95 Physical Exam General Appearance: The patient is alert, has no immediate need for airway protection and no signs of toxicity. [ ] Eyes: Pupils equal and round no pallor or injection; significant scleral icterus noted ENT, Mouth: Mucous membranes are moist. Pt has abrasions c/w tongue biting durin g seizure. No loose dentition. Respiratory: There are no retractions, lungs with bilateral slight inspriatory wheezes, occ nonproductive cough Cardiovascular: Regular rate and rhythm. [ ] Gastrointestinal: abdomen is nontender, is significantly distended. Neurological: pt is awake, alert, oriented to person and place, nto to date or events Skin: jaundices throughout Musculoskeletal: Neck is supple non tender. extremities with bilateral pitting edema throughout lower ext DIFFERENTIAL DIAGNOSIS: After history and physical exam differential diagnosis was considered for seizure due to etoh w/d, drugs/toxins/electrolytes/or other emergnet etiology Medical Decision Making Data Points Result Diagram: 12/23/18210112/23/182101 Laboratory Hematology Test 12/23/18 21:02 12/23/18 21:07 12/23/18 21:24 12/23/18 21:34 Red Blood Count 4.11 M/uL (4.00-5.60) Mean Corpuscular Volume 80.8 fL (80.0-96.0) Mean Corpuscular Hemoglobin 25.0 pg (26.0-33.0) Mean Corpuscular Hemoglobin Concent 31.0 g/dL (32.0-36.0) Red Cell Distribution Width 27.5 % (11.5-14.5) Mean Platelet Volume 9.1 fL (7.2-11.1) Neutrophils (%) (Auto) % (39.4-72.5) Lymphocytes (%) (Auto) % (17.6-49.6) Monocytes (%) (Auto) % (4.1-12.4) Eosinophils (%) (Auto) % (0.4-6.7) Basophils (%) (Auto) % (0.3-1.4) Nucleated RBC Relative Count (auto) /100WBC Neutrophils # (Auto) K/uL (2.0-7.4) Lymphocytes # (Auto) K/uL (1.3-3.6) Monocytes # (Auto) K/uL (0.3-1.0) Eosinophils # (Auto) K/uL (0.0-0.5) Basophils # (Auto) K/uL (0.0-0.1) Nucleated RBC Absolute Count (auto) K/uL Neutrophils % (Manual) 56 % (39.4-72.5) Band Neutrophils % 1 % Lymphocytes % (Manual) 28 % (17.6-49.6) Monocytes % (Manual) 14 % (4.1-12.4) Eosinophils % (Manual) 0 % (0.4-6.7) Basophils % (Manual) 0 % (0.3-1.4) Promyelocytes % 1 % Platelet Estimate Hypochromasia 2 Poikilocytosis 2+ Anisocytosis 3+ Microcytosis 1+ Chuckie Cells 2+ Acanthocytes 2+ Peripheral Blood Smear Yes Y/N Sodium Level 126 mmol/L (137-145) Potassium Level 3.3 mmol/L (3.5-5.0) Chloride Level 92 mmol/L (98-107) Carbon Dioxide Level 21 mmol/L (22-30) Blood Urea Nitrogen 8 mg/dl (9-21) Creatinine 0.70 mg/dl (0.66-1.25) Glomerular Filtration Rate Calc > 60.0 Random Glucose 104 mg/dl (75-110) Calcium Level 8.0 mg/dl (8.4-10.2) Magnesium Level 1.8 mg/dl (1.7-2.2) Total Bilirubin 9.6 mg/dl (0.2-1.3) Aspartate Amino Transf (AST/SGOT) 136 U/L (0-35) Alanine Aminotransferase (ALT/SGPT) 34 U/L (0-56) Alkaline Phosphatase 141 U/L (0-126) Ammonia 39 UMOL/L (9-33) Total Protein 8.3 g/dl (6.3-8.2) Albumin 3.0 g/dl (3.5-5.0) Salicylates Level < 10 mg/L Salicylate Last Dose Date unk Acetaminophen Level < 10 ug/ml Serum Alcohol < 10 mg/dl Whole Blood Glucose 102 mg/DL (75-110) Prothrombin Time 30.0 seconds (12.0-14.4) Prothromb Time International Ratio 2.79 Urine Color Radha Urine Clarity Slightly-cloudy Urine pH 7.0 pH (4.8-9.5) Urine Specific Crittenden 1.014 Urine Protein Negative mg/dL (NEGATIVE) Urine Glucose (UA) Negative mg/dL (NEGATIVE) Urine Ketones Negative mg/dL (NEGATIVE) Urine Blood Negative (NEGATIVE) Urine Nitrite Negative (NEGATIVE) Urine Bilirubin Small (NEGATIVE) Urine Urobilinogen 4.0 mg/dL (0.2-1.9) Urine Leukocyte Esterase Negative (NEGATIVE) Urine RBC 2 /HPF (0-2/HPF) Urine WBC 3 /HPF (0-5/HPF) Urine Squamous Epithelial Cells Moderate /LPF (</=FEW) Urine Bacteria Many /HPF (NONE-FEW) Urine Mucus None /HPF (NONE-FEW) Urine Opiates Screen Negative Urine Barbiturates Screen Negative Ur Tricyclic Antidepressants Screen Negative Urine Phencyclidine Screen Negative Urine Amphetamines Screen Negative Urine Benzodiazepines Screen Negative Urine Cocaine Screen Negative Urine Cannabinoids Screen Negative Chemistry Test 12/23/18 21:02 12/23/18 21:07 12/23/18 21:24 12/23/18 21:34 White Blood Count 5.1 k/uL (4.5-11.0) Red Blood Count 4.11 M/uL (4.00-5.60) Hemoglobin 10.3 g/dL (14.0-18.0) Hematocrit 33.2 % (42.0-52.0) Mean Corpuscular Volume 80.8 fL (80.0-96.0) Mean Corpuscular Hemoglobin 25.0 pg (26.0-33.0) Mean Corpuscular Hemoglobin Concent 31.0 g/dL (32.0-36.0) Red Cell Distribution Width 27.5 % (11.5-14.5) Platelet Count 94 K/uL (150-450) Mean Platelet Volume 9.1 fL (7.2-11.1) Neutrophils (%) (Auto) % (39.4-72.5) Lymphocytes (%) (Auto) % (17.6-49.6) Monocytes (%) (Auto) % (4.1-12.4) Eosinophils (%) (Auto) % (0.4-6.7) Basophils (%) (Auto) % (0.3-1.4) Nucleated RBC Relative Count (auto) /100WBC Neutrophils # (Auto) K/uL (2.0-7.4) Lymphocytes # (Auto) K/uL (1.3-3.6) Monocytes # (Auto) K/uL (0.3-1.0) Eosinophils # (Auto) K/uL (0.0-0.5) Basophils # (Auto) K/uL (0.0-0.1) Nucleated RBC Absolute Count (auto) K/uL Neutrophils % (Manual) 56 % (39.4-72.5) Band Neutrophils % 1 % Lymphocytes % (Manual) 28 % (17.6-49.6) Monocytes % (Manual) 14 % (4.1-12.4) Eosinophils % (Manual) 0 % (0.4-6.7) Basophils % (Manual) 0 % (0.3-1.4) Promyelocytes % 1 % Platelet Estimate Hypochromasia 2 Poikilocytosis 2+ Anisocytosis 3+ Microcytosis 1+ Chuckie Cells 2+ Acanthocytes 2+ Peripheral Blood Smear Yes Y/N Glomerular Filtration Rate Calc > 60.0 Calcium Level 8.0 mg/dl (8.4-10.2) Magnesium Level 1.8 mg/dl (1.7-2.2) Total Bilirubin 9.6 mg/dl (0.2-1.3) Aspartate Amino Transf (AST/SGOT) 136 U/L (0-35) Alanine Aminotransferase (ALT/SGPT) 34 U/L (0-56) Alkaline Phosphatase 141 U/L (0-126) Ammonia 39 UMOL/L (9-33) Total Protein 8.3 g/dl (6.3-8.2) Albumin 3.0 g/dl (3.5-5.0) Salicylates Level < 10 mg/L Salicylate Last Dose Date unk Acetaminophen Level < 10 ug/ml Serum Alcohol < 10 mg/dl Whole Blood Glucose 102 mg/DL (75-110) Prothrombin Time 30.0 seconds (12.0-14.4) Prothromb Time International Ratio 2.79 Urine Color Radha Urine Clarity Slightly-cloudy Urine pH 7.0 pH (4.8-9.5) Urine Specific Crittenden 1.014 Urine Protein Negative mg/dL (NEGATIVE) Urine Glucose (UA) Negative mg/dL (NEGATIVE) Urine Ketones Negative mg/dL (NEGATIVE) Urine Blood Negative (NEGATIVE) Urine Nitrite Negative (NEGATIVE) Urine Bilirubin Small (NEGATIVE) Urine Urobilinogen 4.0 mg/dL (0.2-1.9) Urine Leukocyte Esterase Negative (NEGATIVE) Urine RBC 2 /HPF (0-2/HPF) Urine WBC 3 /HPF (0-5/HPF) Urine Squamous Epithelial Cells Moderate /LPF (</=FEW) Urine Bacteria Many /HPF (NONE-FEW) Urine Mucus None /HPF (NONE-FEW) Urine Opiates Screen Negative Urine Barbiturates Screen Negative Ur Tricyclic Antidepressants Screen Negative Urine Phencyclidine Screen Negative Urine Amphetamines Screen Negative Urine Benzodiazepines Screen Negative Urine Cocaine Screen Negative Urine Cannabinoids Screen Negative Coagulation Test 12/23/18 21:24 Prothrombin Time 30.0 seconds Prothromb Time International Ratio 2.79 Toxicology Test 12/23/18 21:02 12/23/18 21:34 Salicylates Level < 10 mg/L Salicylate Last Dose Date unk Acetaminophen Level < 10 ug/ml Serum Alcohol < 10 mg/dl Urine Opiates Screen Negative Urine Barbiturates Screen Negative Ur Tricyclic Antidepressants Screen Negative Urine Phencyclidine Screen Negative Urine Amphetamines Screen Negative Urine Benzodiazepines Screen Negative Urine Cocaine Screen Negative Urine Cannabinoids Screen Negative Urinalysis Test 12/23/18 21:34 Urine Color Radha Urine Clarity Slightly-cloudy Urine pH 7.0 pH (4.8-9.5) Urine Specific Crittenden 1.014 Urine Protein Negative mg/dL (NEGATIVE) Urine Glucose (UA) Negative mg/dL (NEGATIVE) Urine Ketones Negative mg/dL (NEGATIVE) Urine Blood Negative (NEGATIVE) Urine Nitrite Negative (NEGATIVE) Urine Bilirubin Small (NEGATIVE) Urine Urobilinogen 4.0 mg/dL (0.2-1.9) Urine Leukocyte Esterase Negative (NEGATIVE) Urine RBC 2 /HPF (0-2/HPF) Urine WBC 3 /HPF (0-5/HPF) Urine Squamous Epithelial Cells Moderate /LPF (</=FEW) Urine Bacteria Many /HPF (NONE-FEW) Urine Mucus None /HPF (NONE-FEW) EKG/Imaging EKG Interpretation 12 lead EKG: Rhythm: normal sinus rhythm Chestnut: left axis deviation QRS: low voltage ST segments: no st elevation no stemi Monitor Interpretation: Normal Sinus Rhythm ED Course/Re-evaluation ED Course 53-year-old male presents after reportedly 3 seizures at home and a postictal period per EMS. On exam he is tremulous. He has lacerations to the tongue consistent with seizure. He is sedate with Ativan in ED. CT is unremarkable. Given preponderance of symptoms and findings, possible the patient had delayed alcohol withdrawal seizure due to his cirrhosis. Last known drinks were on the 16th. Considered trauma, ich, metabolic abnormality, or other emergent etiology. Decision to Disposition Date: Dec 23, 2018 Decision to Disposition Time: 23:53 Depart Departure Latest Vital Signs Vital Signs Date Time Temp Pulse Resp B/P (MAP) Pulse Ox O2 Delivery O2 Flow Rate FiO2 12/23/18 23:40 74 17 95 12/23/18 23:30 117/85 (96) 12/23/18 21:03 98.1 Room Air Impression: Primary Impression: Seizures Condition: Improved Disposition: Admitted from ER DEVORAH DYSON MD Dec 23, 2018 21:19
[2018-12-23] MEDS ORDERED: LORazepam 2 MG/ML VIAL ONE (21:24)
--- NOTE | 2018-12-23 21:31 | EKG ---
FACILITY: [facility] [place] PATIENT NAME: MARK ROJO : [id number] MR: [id number] V: [id number] EXAM DATE: ORDERING PHYSICIAN: DEVORAH DYSON TECHNOLOGIST: GAYLE Test Reason : ALTERD MENTAL STATUS Blood Pressure : / mmHG Vent. Rate : 082 BPM Atrial Rate : 082 BPM P-R Int : 198 ms QRS Dur : 092 ms QT Int : 422 ms P-R-T Axes : 043 -32 030 degrees QTc Int : 493 ms Normal sinus rhythm Left axis deviation Low voltage QRS Inferior infarct (cited on or before 23-DEC-2018) No ST-T abnormalities When compared with ECG of 17-MAY-2018 18:48, No significant change was found Confirmed by JANEL MERAZ ([id number]) on 12/24/2018 6:39:17 AM Referred By: Confirmed By:JANEL MERAZ
[2018-12-23 21:42] LABS: INR 2.79
[2018-12-23 21:54] LABS: PLATELET COUNT, AUTOMATED 94 K/uL (150-450)
--- NOTE | 2018-12-23 23:14 | RADIOLOGY IMAGING REPORT ---
FACILITY: [facility] PATIENT NAME: Sim Alba : 1965 MR: [id number] V: [id number] EXAM DATE: ORDERING PHYSICIAN: DEVOARH DYSON TECHNOLOGIST: Location: [facility] Patient: Sim Alba : 1965 Visit/Account:[id number] Date of Sevice: 12/23/2018 EXAMINATION: CT Head without intravenous contrast HISTORY: Seizure. Altered mental status. TECHNIQUE: Axial images were obtained from the skull base to the vertex without intravenous contrast . Sagittal and coronal reformatted images are also submitted. One of the following dose optimization techniques was utilized in the performance of this exam: Autom ated exposure control; adjustment of the mA and/or kV according to the patient's size; or use of an i terative reconstruction technique. Specific details can be referenced in the facility's radiology C T exam operational policy. COMPARISON: None available. FINDINGS: Brain volume: Mild generalized volume loss. Ventricles: Negative. Acute ischemic changes: None. Hemorrhage: None. Masses / edema: None. Kamara-white: Negative. White matter: Negative. Vessels: Mild calcified plaque in the carotid siphons. Normal density in the dural venous sinuses. Extra-axial: Negative. Calvarium / skull base: Right craniotomy with mild underlying dural thickening. Visualized sinuses / orbits: Mild mucosal thickening and fluid in the maxillary sinuses and right sp henoid sinus. Debris or packing material in the right nasal cavity. IMPRESSION: 1. No acute intracranial abnormality. 2. Mild generalized brain parenchymal volume loss. 3. Postop right craniotomy with mild underlying dural thickening. 4. Mild mucosal thickening and fluid in the maxillary sinuses and right sphenoid sinus. Debris or pac omar material in the right nasal cavity. This may represent acute sinusitis in the appropriate clinic al setting. Report Dictated By: Delmar Spring MD at 12/23/2018 11:01 PM Report E-Signed By: Delmar Spring MD at 12/23/2018 11:09 PM WSN:[id number]
--- NOTE | 2018-12-23 23:20 | RADIOLOGY IMAGING REPORT ---
FACILITY: [facility] [place] PATIENT NAME: Sim Alba : 1965 MR: [id number] V: [id number] EXAM DATE: ORDERING PHYSICIAN: DEVORAH DYSON TECHNOLOGIST: Location: [facility] Patient: Sim Alba : 1965 Visit/Account:[id number] Date of Sevice: 12/23/2018 CHEST SINGLE AP HISTORY: Seizure. Wheezing. Possible aspiration. COMPARISON: 12/18/2018. FINDINGS: Lines/tubes: None. Lungs/pleura: Negative. Heart: Negative. Mediastinum: Negative. Bony structures/body wall: Negative. IMPRESSION: No acute cardiopulmonary process. Report Dictated By: Delmar Spring MD at 12/23/2018 11:15 PM Report E-Signed By: Delmar Spring MD at 12/23/2018 11:16 PM WSN:[id number]
[2018-12-24] VITALS (7 sets, daily range): BP systolic 101–120; BP diastolic 62–92; Ht 180.3 cm; Wt 93.2 kg
[2018-12-24] MEDS ORDERED: LORazepam 1 MG TAB PO PRN (00:10)
[2018-12-24] MEDS ORDERED: LORazepam 2 MG/ML VIAL IVP PRN ×2 (00:10→00:20)
[2018-12-24] MEDS ORDERED: INFLUENZA VIRUS VAC 0.5ML SYR IM ONLY ONE (00:10)
[2018-12-24] MEDS ORDERED: ALBUTEROL 2.5 MG/3 ML NEB NEB PRN (00:10)
--- NOTE | 2018-12-24 00:51 | History & Physical ---
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 The history is from the ER physician and the patient. The patient was in [facility] from 12/19 to 12/22 (2 days ago) for AMS and fever. He likely had a viral etiology for the fever because the work up was negative. His mental status cleared and he didn't require any lorazepam for alcohol withdrawal. His sister has watched him closely since being home and reports that he hasn't had any alcohol. However, the patient says he had a couple when he got home and maybe some yesterday. He was watching basketball and then the next thing he remembers were EMS personnel coming in to take him to the hospital. His sister reports that she saw him have 3 seizures in the matter of about 15 minutes. According to EMS, he was somnolent upon arrival, but became more awake by the time he got to the ER. He denies f/c/any pain in his body/new medications/falls at home. He does admit that his tongue is a bit sore. He reports that he is wheezy at home all the time. He denies any illicit drug use or cigarette use. In the ER, he did receive a dose of Ativan. History Problems: (1) Hyponatremia Status: Chronic (2) Hoarseness Status: Chronic (3) Acute on chronic alcoholic liver disease Status: Chronic (4) Alcohol use Status: Chronic Home Meds Active Scripts Pantoprazole Sodium (PANTOPRAZOLE SODIUM) 40 Mg Tablet.dr, 40 MG PO BID, #60 TAB Prov:RADHA LI DO 12/22/18 Thiamine Hcl (VITAMIN B-1) 100 Mg Tablet, 100 MG PO QDAY, #30 TAB Prov:RADHA LI DO 12/22/18 Spironolactone (SPIRONOLACTONE) 100 Mg Tablet, 100 MG PO QDAY, #30 TAB Prov:RADHA LI DO 12/22/18 Furosemide (FUROSEMIDE) 40 Mg Tablet, 40 MG PO QDAY, #30 TAB Prov:RADHA LI DO 12/22/18 Discontinued Scripts Lorazepam (ATIVAN) 0.5 Mg Tablet, 0.5 MG PO Q6H PRN for ANXIETY, #10 TAB 0 Refills Prov:AMERICO ALLEN MD 10/02/15 Omeprazole (OMEPRAZOLE) 20 Mg Capsule.dr, 1 CAP PO BID, #60 CAP 0 Refills Prov:AMERICO ALLEN MD 10/02/15 Sucralfate (CARAFATE) 1 Gm Tablet, 1 GM PO QID, #120 TAB 0 Refills Prov:AMERICO ALLEN MD 10/02/15 Allergies: Coded Allergies: No Known Allergies (Verified Allergy, Mild, 05/17/18) Patient History: Patient reports no known family medical history. Hx Smoking: No Smoking Status: Never Smoker Exposure to Second Hand Smoke?: Yes Caffeine Intake: Coffee, Soda Caffeine/Cups Per Day: 2 Hx Alcohol Use: Yes (4-5 BEERS/DAY) Hx Substance Use Disorder: No Review of Systems All Systems Reviewed/Normal: Yes, Except as Noted Exam Vital Signs Vital Signs Date Time Temp Pulse Resp B/P (MAP) Pulse Ox O2 Delivery O2 Flow Rate FiO2 12/23/18 23:40 74 17 95 12/23/18 23:30 117/85 (96) 12/23/18 21:03 98.1 Room Air General Appearance: Alert, Awake, No Acute Distress (but has loud expiratory wheezing.) Neuro: Other (knows year, month, where he is and some details of why he was in the ER. Gave conflicting stories at times. Tremor of hand when hands out in front bilaterally) ENT: Other (Tongue has circumfrential areas of bleeding on the distal end that is mild) Cardiovascular: Regular Rate and Rhythm Respiratory: Other (Diffuse exp wheezing louder on the right with diminshed BS in the bases bilaterally) Extremities: Edema (1-2+ pitting in shins (L>R), which he reports is chronic) Integumentary: Jaundice Medical Decision Making Data Points Result Diagram: 12/23/18210112/23/182101 Item Value Date Time Neutrophils % (Manual) 56 % 12/23/182101 Band Neutrophils % 1 % 12/23/182101 Lymphocytes % (Manual) 28 % 12/23/182101 Monocytes % (Manual) 14 % H 12/23/182101 Eosinophils % (Manual) 0 % L 12/23/182101 Basophils % (Manual) 0 % L 12/23/182101 White Blood Count 1.9 k/uL *L 12/22/18 0602 Prothromb Time International Ratio 2.79 12/23/184 Sodium Level 125 mmol/L *L 12/22/18 0602 Potassium Level 3.6 mmol/L 12/22/18 0602 Total Bilirubin 6.4 mg/dl H 12/22/18 0602 Aspartate Amino Transf (AST/SGOT) 90 U/L H 12/22/18 0602 Aspartate Amino Transf (AST/SGOT) 136 U/L H 12/23/18 2102 Alanine Aminotransferase (ALT/SGPT) 34 U/L 12/22/18 0602 Alanine Aminotransferase (ALT/SGPT) 34 U/L 12/23/18 210 Alkaline Phosphatase 104 U/L 12/22/18 06 Alkaline Phosphatase 141 U/L H 12/23/18 210 Hepatitis A Antibody Total Positive H 12/19/18 09 Hepatitis B Surface Antigen Negative 12/19/18 09 Hepatitis B Surface Antibody Negative 12/19/18 09 Hepatitis B Core IgM Antibody Negative 12/19/18904 Hepatitis C Antibody (JANA) Index 0.20 IV 12/19/18 09 Hepatitis C Antibody (JANA) Interp Negative 12/19/18 09 EKG / Imaging Imaging Head CT - 1. No acute intracranial abnormality. 2. Mild generalized brain parenchymal volume loss. 3. Postop right craniotomy with mild underlying dural thickening. 4. Mild mucosal thickening and fluid in the maxillary sinuses and right sphenoid sinus. Debris or packing material in the right nasal cavity. This may represent acute sinusitis in the appropriate clinical setting. CXR - No acute cardiopulmonary process. Assessment and Plan Problems: (1) Seizures Status: Acute Assessment & Plan: He presented with 3 witnessed seizures in a 15 minute time span. He has evidence of biting his tongue and he was postictal. Based on his sister's report, his last drink of alcohol was 12/18 (about 6 days prior to admission). When he was in [facility], he received no benzodiazepines. He has never had a seizure before and his head CT was unremarkable except possible packing in his nose vs sinusitis. Likely, he had a delayed seizure from alcohol withdrawal. He will be placed on CIWA protocol and covered with lorazepam secondary to his liver disease. Seizure precautions will be implemented. (2) Acute on chronic alcoholic liver disease Status: Chronic Assessment & Plan: Coagulopathic, ascites/edema, hyponatremic, elevated total bilirubin and elevated ammonia. Viral hepatitis studies only showed antibodies to hepatitis A. Will restart Lasix, spironolactone and lactulose. (3) Hyponatremia Status: Chronic Assessment & Plan: Secondary to cirrhosis. Stable. (4) Anemia Status: Chronic Assessment & Plan: He received 4 units of PRBC on 12/19. Hgb is stable. Will follow. No symptoms c/w bleeding. Venous Thromboembolism Antithrombotics Is Pt On Any Antithrombotics?: No Prophylaxis Tx Contraindicated Pharmacological Contraindicati: Liver Disease Exam Sepsis Risk: No Definite Risk JANEL MERAZ MD Dec 24, 2018 00:51
[2018-12-24] MEDS: ALBUTEROL/IPRATROPIUM 3 ML NEB NEB SCH ×3 (05:27→17:01)
[2018-12-24 06:23] LABS: PLATELET COUNT, AUTOMATED 92 K/uL (150-450)
[2018-12-24 06:24] LABS: INR 2.67
[2018-12-24] MEDS ORDERED: MAGNESIUM SUL* 2 GM/50 ML IVPB 50 ML IVPB ONE (07:10)
[2018-12-24] MEDS ORDERED: SPIRONOLACTONE 25 MG TAB PO SCH (09:00)
[2018-12-24] MEDS ORDERED: FUROSEMIDE 40 MG TAB PO SCH (09:00)
--- NOTE | 2018-12-24 09:25 | Medical Nutrition Therapy ---
Nutrition Anthropometrics Height (Inches): 71.00 Height (Calculated Centimeters: 180.005915 Weight (Pounds): 205 Weight (Calculated Kilograms): 93.213 Russ Nutrition Score: Adequate Russ Nutrition Risk Score: 19 Dietary Referral Nutrition Risk Factors: Nutrition Risk Comment: Physical Findings Physical Appearance: Overweight BMI 25-29 Skin Appearance Skin Appearance: Edema Edema Location Modifier: Both Edema Location: hips and abd Type of Edema: Degree of Edema: 1+ Gastrointestinal Symptoms GI Symtoms: Tube Present: Bowel Sounds: Recent Bowel Pattern: Stool Characteristics: Nutritional Diagnosis Nutritional Risk Acuity 2: Liver Cirrhosis Nutritional Risk Acuity 3: Alcohol abuse Past Medical History: Alcoholic liver disease, espophagial variceies, GI bleed, hyponatremia, hoarseness, alcohol abuse Nutritional Acuity: 2-Moderate Nutrition Diagnosis: Excessive Alcohol Intake Nutrition Etiology: Alcohol Addiction Nutrition Problem/Etiology/Sym: Excessive alcohol intake as related to alcohol addiction as evidenced by seizures, BUN of 7, creatinine of 0.60, AST of 9.4, albumin of 2.4, and ESLD/cirrhosis. Energy Requirement: 2790 (Yoihst-33-75aekt/kg so 235-3255kcal/day) Protein Requirement: 83.7 (John-0.8-1g/kg so 74.4-93 g protein/kg) Fluid Requirement: 2325 (25mL/kg) Nutrition Intervention: Cont diet as ordered, Encourage intake Drug: Diuretics Drug/Nutrition Recommendations: Check Serum K+ Nutrition Monitoring & Eval Nutrition Goals: Eat 50-100% Meal, Drink > 2 liters/day RD Patient Assessment Time: [address] Assessment Type: RD Assessment Patient Nutrition Acuity: 2-Moderate Follow Up Date: Dec 28, 2018 Nutritional Comment: Pt admitted due to 3 witnessed seizures within 15 minutes. Pt is also found to have anemia. 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 Pt was in [facility] from 12/19-12/22. Upon returing home pt reports continued alcohol consumption, while family reports no alcohol use. Pt on spironolactone (K sparing) and furosemide (K wasting), folic acid and thiamine. Vit A, Vit K, B6, and niacin may also be recommended. Pt MCV is decreased at 78.5, pt on folic acid supplement, B12 may also be indicated dependent on etiology of MCV changes. Pt RBC of 3.78, Hgb of 9.6, and Hct of 29.7 are decreased. Na of 127, K of 3.3, Cl of 97, BUN of 7, creatinine of 0.60, and albumin of 2.4 are decrease. AST of 94 is elevated. Labs indicate low liver and kidney function. Pt on ANTHONY with no reported intakes. Monitor for adequate intake and vitamin supplementation. -PRISCILLA FLOWER Dec 24, 2018 09:25
[2018-12-24] MEDS: PANTOPRAZOLE SOD 40 MG TABEC PO SCH (10:39)
[2018-12-24] MEDS: LACTULOSE 10 GM/15 ML UDCUP PO SCH (10:39)
[2018-12-24] MEDS: THIAMINE HCL 100 MG TAB PO SCH (10:39)
[2018-12-24] MEDS: FOLIC ACID 1 MG TAB PO SCH (10:40)
[2018-12-24] MEDS ORDERED: KCL (*) 20 MEQ/100 ML PREMIX 100 ML IV ONE (11:35)
--- NOTE | 2018-12-24 13:19 | Hospitalist Progress Note ---
Subjective Progress Notes Subjective The patient is sleepy but does awaken and answer questions. Physical Exam Vital Signs Date Time Temp Pulse Resp B/P (MAP) Pulse Ox O2 Delivery O2 Flow Rate FiO2 12/24/18 11:05 72 16 12/24/18 11:05 94 Nasal Cannula 1.0 12/24/18 10:37 98.0 116/76 (89) Intake and Output 12/24/18 07:00 # Voids 1 General Appearance: Other (Somnolent.) Cardiovascular: Regular Rate and Rhythm, No Edema Respiratory: No Respiratory Distress GI: Soft and Non-Tender Extremities: Warm, Perfused Result Diagram: 12/24/18 0550 12/24/18 0550 Monitor Interpretation: Normal Sinus Rhythm Assessment and Plan Problems: (1) Seizures Status: Acute Assessment & Plan: He presented with 3 witnessed seizures in a 15 minute time span. He has evidence of biting his tongue and he was postictal. Based on his sister's report, his last drink of alcohol was 12/18 (about 6 days prior to his current admission admission). The patient was admitted to [facility] from 12/19-12/23. During that hospital stay, he received no benzodiazepines. He has never had a seizure before and his head CT was unremarkable except possible packing in his nose vs sinusitis. Likely, he had a delayed seizure from alcohol withdrawal. He will be placed on CIWA protocol and covered with lorazepam secondary to his liver disease. Seizure precautions have been implemented. He did received 2 mg of Ativan since admission and is somnolent at this time. Will hold off on giving him any further Ativan for now. (2) Acute on chronic alcoholic liver disease Status: Chronic Assessment & Plan: Coagulopathic, ascites/edema, hyponatremic, elevated total bilirubin and elevated ammonia. Viral hepatitis studies only showed antibodies to hepatitis A. The patient has been on Lasix, spironolactone and lactulose. Will restart lactulose today but hold the diuretics as the patient has had Ativan and is sleepy so has not had significant oral intake today. (3) Hyponatremia Status: Chronic Assessment & Plan: Secondary to cirrhosis. Stable. (4) Anemia Status: Chronic Assessment & Plan: He received 4 units of PRBC on 12/19. Hgb is stable. Will follow. No symptoms c/w bleeding. Due to his coagulopathy, his INR is elevated at 2.67. Monitor for signs of bleeding. (5) Increased nasal secretion Status: Acute Assessment & Plan: On CT scan, there was report of possible nasal packing versus debris on the right side. A large amount of very hard nasal discharge noted deep in the right nostril. A piece was removed, but a large amount remains. Once the patient is more awake and alert, he will need to use a nasal spray to soften the remaining debris. Time Spent on Plan of Care: < 30 min Exam Sepsis Risk: No Definite Risk MATTHEW SCOTT MD Dec 24, 2018 13:19
[2018-12-24] MEDS ORDERED: SALINE 0.65% NAS SPR 44 ML BTL PRN (15:20)
[2018-12-25 05:06] VITALS: BP 136/92
[2018-12-25 05:18] LABS: PLATELET COUNT, AUTOMATED 76 K/uL (150-450)
[2018-12-25] MEDS: ALBUTEROL/IPRATROPIUM 3 ML NEB NEB SCH ×3 (06:00→16:53)
[2018-12-25 07:28] VITALS: BP 119/74
[2018-12-25] MEDS ORDERED: POTASSIUM CHL 10 MEQ TABCR PO ONE (08:35)
[2018-12-25] MEDS: PANTOPRAZOLE SOD 40 MG TABEC PO SCH (10:00)
[2018-12-25] MEDS: FUROSEMIDE 40 MG TAB PO SCH (10:00)
[2018-12-25] MEDS: THIAMINE HCL 100 MG TAB PO SCH (10:00)
[2018-12-25] MEDS: SPIRONOLACTONE 25 MG TAB PO SCH (10:01)
[2018-12-25] MEDS: LACTULOSE 10 GM/15 ML UDCUP PO SCH (10:01)
[2018-12-25] MEDS: FOLIC ACID 1 MG TAB PO SCH (10:01)
[2018-12-25 11:18] VITALS: BP 107/78
--- NOTE | 2018-12-25 11:20 | Hospitalist Progress Note ---
Subjective Progress Notes Subjective He reports that he is doing well and has no complaints. He wants to go home. Physical Exam Vital Signs Date Time Temp Pulse Resp B/P (MAP) Pulse Ox O2 Delivery O2 Flow Rate FiO2 12/25/18 08:03 91 Nasal Cannula 2.0 12/25/18 07:28 97.9 76 14 119/74 (89) Intake and Output 12/25/18 07:00 Intake Total 0 ml Balance 0 ml Intake Oral 0 ml # Voids 1 General Appearance: Alert, Awake, No Acute Distress Neuro: Other (Knows month, year, where he is. He isn't clear on why he is in the hospital.) GI: Soft and Non-Tender (Distended.) Extremities: Edema (2+ pitting to knees (L>R)) Result Diagram: 12/25/18 0507 12/25/18 050 Monitor Interpretation: Normal Sinus Rhythm Assessment and Plan Problems: (1) Seizures Status: Acute Assessment & Plan: He presented with 3 witnessed seizures in a 15 minute time span. He has evidence of biting his tongue and he was postictal. Based on his sister's report, his last drink of alcohol was 12/18 (about 6 days prior to his current admission admission). The patient was admitted to [facility] from 12/19-12/23. During that hospital stay, he received no benzodiazepines. He has never had a seizure before and his head CT was unremarkable except possible packing in his nose vs sinusitis. Likely, he had a delayed seizure from alcohol withdrawal. He is on CIWA protocol and covered with lorazepam secondary to his liver disease. Seizure precautions have been implemented. He did received 1 mg of Ativan yesterday morning and then was sleepy most of the day. He is alert and awake today. If he goes another 24 hours without a seizure and he is moving well, then he can be discharged. His mom is here and nervous about him going home. [facility] is going to talk to them and also PT will evaluate him. He is refusing to go to [facility]. Likely, his only option will be going home and that is the only thing he is willing to do. (2) Acute on chronic alcoholic liver disease Status: Chronic Assessment & Plan: Coagulopathic, ascites/edema, hyponatremic, elevated total bilirubin and elevated ammonia. Viral hepatitis studies only showed antibodies to hepatitis A. The patient has been on Lasix, spironolactone and lactulose. Restarting diuretics today. (3) Hyponatremia Status: Chronic Assessment & Plan: Secondary to cirrhosis. Stable. (4) Anemia Status: Chronic Assessment & Plan: He received 4 units of PRBC on 12/19. Hgb is stable. Will follow. No symptoms c/w bleeding. Due to his coagulopathy, his INR is elevated at 2.67. Monitor for signs of bleeding. (5) Increased nasal secretion Status: Acute Assessment & Plan: On CT scan, there was report of possible nasal packing versus debris on the right side. A large amount of very hard nasal discharge noted deep in the right nostril. A piece was removed, but a large amount remains. Once the patient is more awake and alert, he will need to use a nasal spray to soften the remaining debris. Exam Sepsis Risk: No Definite Risk JANEL MERAZ MD Dec 25, 2018 11:20
--- NOTE | 2018-12-25 15:40 | NUR ---
Physical Therapy Impression PT eval completed. Pt is at baseline for mobility and is modified indep/SBA for bed mobility, transfers and ambulation with FWW. Pt encouraged to have CGA by nursing simply due to seizure precautions. Pt is much more stable now that he is agreeable to using FWW, as compared to his prior admission. Pt would benefit from 24 hour care to support safety in the home or in a SNF setting. Physical Therapy Goals No goals set, as PT eval indicates no skilled needs at this time. Recommend 24 hr care or SNF to ensure pt's consistent use of FWW and to advocate for pt's safety. Patient's Goals
[2018-12-25 16:19] VITALS: BP 129/77
[2018-12-25 19:12] VITALS: BP 122/79
[2018-12-25 23:24] VITALS: BP 114/66
[2018-12-26] MEDS: ALBUTEROL/IPRATROPIUM 3 ML NEB NEB SCH (05:47)
[2018-12-26 05:59] LABS: PLATELET COUNT, AUTOMATED 94 K/uL (150-450)
[2018-12-26 06:08] VITALS: BP 102/75
[2018-12-26 06:08] LABS: INR 2.6
[2018-12-26] MEDS: SPIRONOLACTONE 25 MG TAB PO SCH (09:45)
[2018-12-26] MEDS: PANTOPRAZOLE SOD 40 MG TABEC PO SCH (09:45)
[2018-12-26] MEDS: THIAMINE HCL 100 MG TAB PO SCH (09:46)
[2018-12-26] MEDS: FUROSEMIDE 40 MG TAB PO SCH (09:46)
[2018-12-26] MEDS: FOLIC ACID 1 MG TAB PO SCH (09:46)
[2018-12-26] MEDS: LACTULOSE 10 GM/15 ML UDCUP PO SCH (09:46)
[2018-12-26] MEDS ORDERED: LACT10SO62 PO (10:33)
[2018-12-26] MEDS ORDERED: POTA-53 PO (10:33)
--- NOTE | 2018-12-26 10:50 | Hospitalist Depart ---
Discharge Summary Reason for Hosp/Final Diag: (1) Seizures Status: Acute Hospital Course & Plan: He presented with 3 witnessed seizures in an approximate 15 minute time span. He had evidence of biting his tongue and was postictal. Based on his sister's report, his last drink of alcohol was 12/18 (about 6 days prior). The patient was admitted to [facility] from 12/19-12/23. During that hospital stay, he received no benzodiazepines. He has never had a seizure before this. His head CT was unremarkable except packing in his nose. Likely, he had a delayed seizure from alcohol withdrawal. He was placed on CIWA protocol and covered with lorazepam secondary to his liver disease. Seizure precautions were implemented. He received only 1mg of Ativan during his stay. He did not have any recurrent seizures. His family was nervous about him going home again. He is refusing to go to S unit. He also refused NH placement. Thus, his only option at this point will be going home and essentially that is the only thing he is willing to do. He does understand his liver disease is quite advanced and his prognosis is poor. He also understands he should not have any alcohol otherwise he risks further deterioration and probably . He will follow up at the [facility]. (2) Acute on chronic alcoholic liver disease Status: Chronic Hospital Course & Plan: He has significant coagulopathy, ascites/edema, hyponatremia, elevated total bilirubin, and elevated ammonia. Viral hepatitis studies only showed antibodies to hepatitis A. The patient has been on Lasix, spironolactone and lactulose. The Lasix will be held at least temporarily, due to persistent hyponatremia and hypokalemia. He will be on a potassium supplement short term. He will need follow up lab in 5-7 days. (3) Hyponatremia Status: Chronic Hospital Course & Plan: Secondary to liver disease and diuretics. Stable. (4) Anemia Status: Chronic Hospital Course & Plan: He received 4 units of PRBC on 12/19/18. Hgb/Hct have been stable. No symptoms consistent with active bleeding. (5) Increased nasal secretion Status: Acute Hospital Course & Plan: On CT scan, there was report of possible nasal packing versus debris on the right side. A large amount of very hard nasal discharge noted deep in the right nostril. A piece was removed, but a large amount remains. He will need to use a saline nasal spray to soften the remaining debris. Departure Weight (Pounds): 205 Weight (Ounces): 8.0 Result Diagram: 12/26/18 0512/26/18 0528 Item Value Date Time Sodium Level 127 mmol/L L 12/24/18 0550 Potassium Level 3.3 mmol/L L 12/24/18 0550 Chloride Level 94 mmol/L L 12/24/18 0550 Carbon Dioxide Level 25 mmol/L 12/24/18 0550 Blood Urea Nitrogen 7 mg/dl L 12/24/18 0550 Creatinine 0.60 mg/dl L 12/24/18 0550 Glomerular Filtration Rate Calc > 60.0 12/24/18 0550 Random Glucose 85 mg/dl 12/24/18 0550 Calcium Level 7.6 mg/dl L 12/24/18 0550 Magnesium Level 1.6 mg/dl L 12/24/18 0550 Total Bilirubin 9.0 mg/dl H 12/24/18 0550 Aspartate Amino Transf (AST/SGOT) 94 U/L H 12/24/18 0550 Alanine Aminotransferase (ALT/SGPT) 38 U/L 12/24/18 0550 Alkaline Phosphatase 117 U/L 12/24/18 0550 Total Protein 7.1 g/dl 12/24/18 0550 Albumin 2.4 g/dl L 12/24/18 0550 Magnesium Level 1.9 mg/dl 12/25/18 0507 Albumin 2.3 g/dl L 12/26/18 0528 Total Protein 7.1 g/dl 12/26/18 0528 Alkaline Phosphatase 131 U/L H 12/26/18 0528 Alanine Aminotransferase (ALT/SGPT) 33 U/L 12/26/18 0528 Aspartate Amino Transf (AST/SGOT) 69 U/L H 12/26/18 0528 Total Bilirubin 8.7 mg/dl H 12/26/18 0528 White Blood Count 5.1 k/uL 12/24/18 0550 Hemoglobin 9.6 g/dL L 12/24/18 0550 Hematocrit 29.7 % L 12/24/18 0550 Platelet Count 92 K/uL L 12/24/18 0550 Prothrombin Time 28.9 seconds H 12/24/18 0550 Prothromb Time International Ratio 2.67 12/24/18 0550 Prothrombin Time 28.4 seconds H 12/26/18 0528 Prothromb Time International Ratio 2.60 12/26/18 0528 Urine Color Radha 12/23/182133 Urine Clarity Slightly-cloudy 12/23/182133 Urine pH 7.0 pH 12/23/182133 Urine Specific [place] 1.014 12/23/182133 Urine Protein Negative mg/dL 12/23/182133 Urine Glucose (UA) Negative mg/dL 12/23/182133 Urine Ketones Negative mg/dL 12/23/182133 Urine Blood Negative 12/23/182133 Urine Nitrite Negative 12/23/182133 Urine Bilirubin Small 12/23/182133 Urine Urobilinogen 4.0 mg/dL H 12/23/182133 Urine Leukocyte Esterase Negative 12/23/182133 Urine RBC 2 /HPF 12/23/182133 Urine WBC 3 /HPF 12/23/182133 Urine Squamous Epithelial Cells Moderate /LPF H 12/23/182133 Urine Bacteria Many /HPF H 12/23/182133 Urine Mucus None /HPF 12/23/182133 Salicylates Level < 10 mg/L 12/23/182101 Acetaminophen Level < 10 ug/ml 12/23/182101 Serum Alcohol < 10 mg/dl 12/23/182101 Urine Cannabinoids Screen Negative 12/23/182133 Urine Cocaine Screen Negative 12/23/182133 Urine Benzodiazepines Screen Negative 12/23/182133 Urine Amphetamines Screen Negative 12/23/182133 Urine Phencyclidine Screen Negative 12/23/182133 Ur Tricyclic Antidepressants Screen Negative 12/23/182133 Urine Barbiturates Screen Negative 12/23/182133 Urine Opiates Screen Negative 12/23/182133 Prothrombin Time 30.0 seconds H 12/23/182123 Prothromb Time International Ratio 2.79 12/23/182123 White Blood Count 5.1 k/uL 12/23/182101 Hemoglobin 10.3 g/dL L 12/23/182101 Platelet Count 94 K/uL L 12/23/182101 Sodium Level 126 mmol/L L 12/23/182101 Potassium Level 3.3 mmol/L L 12/23/182101 Chloride Level 92 mmol/L L 12/23/182101 Carbon Dioxide Level 21 mmol/L L 12/23/182101 Blood Urea Nitrogen 8 mg/dl L 12/23/182101 Creatinine 0.70 mg/dl 12/23/182101 Random Glucose 104 mg/dl 12/23/182101 Calcium Level 8.0 mg/dl L 12/23/182101 Magnesium Level 1.8 mg/dl 12/23/182101 Total Bilirubin 9.6 mg/dl H 12/23/182101 Aspartate Amino Transf (AST/SGOT) 136 U/L H 12/23/182101 Alanine Aminotransferase (ALT/SGPT) 34 U/L 12/23/182101 Alkaline Phosphatase 141 U/L H 12/23/182101 Ammonia 39 UMOL/L H 12/23/182101 Total Protein 8.3 g/dl H 12/23/182101 Albumin 3.0 g/dl L 12/23/182101 Thyroid Stimulating Hormone (TSH) 4.16 uIU/ml 12/23/182101 Imaging PATIENT NAME: Sim Alba : 1965 MR: [id number] V: [id number] EXAM DATE: ORDERING PHYSICIAN: DEVORAH DYSON TECHNOLOGIST: Location: [facility] Patient: Sim Alba : 1965 Visit/Account:[id number] Date of Sevice: 12/23/2018 EXAMINATION: CT Head without intravenous contrast HISTORY: Seizure. Altered mental status. TECHNIQUE: Axial images were obtained from the skull base to the vertex without intravenous contrast. Sagittal and coronal reformatted images are also submitted. One of the following dose optimization techniques was utilized in the performance of this exam: Automated exposure control; adjustment of the mA and/or kV according to the patient's size; or use of an iterative reconstruction technique. Specific details can be referenced in the facility's radiology CT exam operational policy. COMPARISON: None available. FINDINGS: Brain volume: Mild generalized volume loss. Ventricles: Negative. Acute ischemic changes: None. Hemorrhage: None. Masses / edema: None. Kamara-white: Negative. White matter: Negative. Vessels: Mild calcified plaque in the carotid siphons. Normal density in the dural venous sinuses. Extra-axial: Negative. Calvarium / skull base: Right craniotomy with mild underlying dural thickening. Visualized sinuses / orbits: Mild mucosal thickening and fluid in the maxillary sinuses and right sphenoid sinus. Debris or packing material in the right nasal cavity. IMPRESSION: 1. No acute intracranial abnormality. 2. Mild generalized brain parenchymal volume loss. 3. Postop right craniotomy with mild underlying dural thickening. 4. Mild mucosal thickening and fluid in the maxillary sinuses and right sphenoid sinus. Debris or packing material in the right nasal cavity. This may represent acute sinusitis in the appropriate clinical setting. Report Dictated By: Delmar Spring MD at 12/23/2018 11:01 PM Report E-Signed By: Delmar Spring MD at 12/23/2018 11:09 PM [id number] PATIENT NAME: Sim Alba : 1965 MR: [id number] V: [id number] EXAM DATE: ORDERING PHYSICIAN: DEVORAH DYSON TECHNOLOGIST: Location: [facility] Patient: Sim Alba : 1965 Visit/Account:[id number] Date of Sevice: 12/23/2018 CHEST SINGLE AP HISTORY: Seizure. Wheezing. Possible aspiration. COMPARISON: 12/18/2018. FINDINGS: Lines/tubes: None. Lungs/pleura: Negative. Heart: Negative. Mediastinum: Negative. Bony structures/body wall: Negative. IMPRESSION: No acute cardiopulmonary process. Report Dictated By: Delmar Spring MD at 12/23/2018 11:15 PM Report E-Signed By: Delmar Spring MD at 12/23/2018 11:16 PM [id number] EKG PATIENT NAME: SIM ALBA : [id number] MR: [id number] V: [id number] EXAM DATE: ORDERING PHYSICIAN: DEVORAH DYSON TECHNOLOGIST: GAYLE Test Reason : ALTERD MENTAL STATUS Blood Pressure : / mmHG Vent. Rate : 082 BPM Atrial Rate : 082 BPM P-R Int : 198 ms QRS Dur : 092 ms QT Int : 422 ms P-R-T Axes : 043 -32 030 degrees QTc Int : 493 ms Normal sinus rhythm Left axis deviation Low voltage QRS Inferior infarct (cited on or before 23-DEC-2018) No ST-T abnormalities When compared with ECG of 17-MAY-2018 18:48, No significant change was found Confirmed by JANEL MERAZ ([id number]) on 12/24/2018 6:39:17 AM Referred By: Confirmed By:JANEL MERAZ Condition: Improved Discharge: Home, Self Care Time Spent: > 30 min Discharge Instructions Home Meds Active Scripts Potassium Chloride (POTASSIUM CHLORIDE) 10 Meq Tab.er.prt, 10 MEQ PO QDAY, #5 TAB 0 Refills Prov:SIHV SCOTT MD 12/26/18 Lactulose (LACTULOSE) 10 Gm/15 Ml Solution, 20 GM PO DAILY for 30 Days, #1 BOT 1 Refill Hold if more than 3 loose bowel movements daily. Prov:SHIV SCOTT MD 12/26/18 Pantoprazole Sodium (PANTOPRAZOLE SODIUM) 40 Mg Tablet.dr, 40 MG PO BID, #60 TAB Prov:RADHA LI DO 12/22/18 Thiamine Hcl (VITAMIN B-1) 100 Mg Tablet, 100 MG PO QDAY, #30 TAB Prov:RADHA LI DO 12/22/18 Spironolactone (SPIRONOLACTONE) 100 Mg Tablet, 100 MG PO QDAY, #30 TAB Prov:RADHA LI DO 12/22/18 Discontinued Scripts Furosemide (FUROSEMIDE) 40 Mg Tablet, 40 MG PO QDAY, #30 TAB Prov:RADHA LI DO 12/22/18 Diet: Regular Activity: As Tolerated, No Exertion Special Instructions: Follow up at [facility] on Thursday12/29/18. Call on Thursday12/27/18 for an appointment. Return to ER if any problems. No alcohol. Copies to: [facility] ; Venous Thromboembolism Antithrombotics Is Pt On Any Antithrombotics?: No SHIV SCOTT MD Dec 26, 2018 10:50
--- NOTE | 2018-12-26 10:58 | NUR ---
Home oxygen Patient refusing home oxygen. Education given.
== END 2018-12-26 11:30 | disposition home or self-care (01) | DRG 897 ==
LOC: ER 21:05 → MED 12-24 00:40
PROVIDERS: ADMIT Internal Medicine; ATTEND Internal Medicine
DX: F10.231 Alcohol dependence with withdrawal delirium (principal); E87.1 Hypo-osmolality and hyponatremia; D68.9 Coagulation defect, unspecified; K70.40 Alcoholic hepatic failure without coma; K70.31 Alcoholic cirrhosis of liver with ascites; D63.8 Anemia in other chronic diseases classified elsewhere; R49.0 Dysphonia; R56.9 Unspecified convulsions; Y90.0 Blood alcohol level of less than 20 mg/100 ml
CPT/HCPCS: 36415; 36416; 70450; 71045; 80305; 80320; 80329; 81001; 82040; 82140; 82247; 82310; 82374; 82435; 82565; 82947; 82948; 83735; 84075; 84132; 84155; 84295; 84443; 84450; 84460; 84520; 85025; 85610; 93005; 94640; 97161; 99285; J2060; J3475; J3480

== ENCOUNTER → 2018-12-23 | Outpatient (CLI) | payer SELFPAY ==
[~2018-12-23] MED LIST changes: +FURO-47 PO; +LACT10SO62 PO; +POTA-53 PO; +SPIR100T33 PO; +THIA100T20 PO
[2018-12-24 09:02] VITALS: BMI 28.6
== END ==
LOC: AMB 20:32
PROVIDERS: ATTEND Nurse Practitioner
DX: R41.0 Disorientation, unspecified (principal); R53.1 Weakness; R14.0 Abdominal distension (gaseous); R60.9 Edema, unspecified; R05 Cough
CPT/HCPCS: A0425; A0427

== ENCOUNTER 2019-01-15 09:31 | Inpatient (IN) | payer SELFPAY ==
[~2019-01-15] VITALS: Ht 190.5 cm; Wt 96.6 kg
[~2019-01-15 09:31] MED LIST changes: +LACT10SO62 PO; +POTA-53 PO
--- NOTE | 2019-01-15 09:35 | ER Report ---
History and Physical Time Seen By : 09:35 HPI/ROS Known history of alcoholic liver cirrhosis. Last drank alcohol December 23. Presents to the ED with his mom at the bedside with profound generalized weakness. Unable to get out of bed. He denies chest pain. Denies shortness breath. No fever chills. No abdominal pain. States that his jaundice has been baseline. His ascites is at baseline. He takes most of his medications, but has not taking lactulose. Has not followed up with tool procurement coordinator since being discharged from the hospital in late December. No recent trauma. Denies any focal neuro deficits. Remainder of the 14 system rev: Yes Allergies: Coded Allergies: No Known Allergies (Verified Allergy, Mild, 01/15/19) Home Meds Active Scripts Potassium Chloride (POTASSIUM CHLORIDE) 10 Meq Tab.er.prt, 10 MEQ PO QDAY, #5 TAB 0 Refills Prov:SHIV SCOTT MD 12/26/18 Lactulose (LACTULOSE) 10 Gm/15 Ml Solution, 20 GM PO DAILY for 30 Days, #1 BOT 1 Refill Hold if more than 3 loose bowel movements daily. Prov:SHIV SCOTT MD 12/26/18 Pantoprazole Sodium (PANTOPRAZOLE SODIUM) 40 Mg Tablet.dr, 40 MG PO BID, #60 TAB Prov:RADHA LI DO 12/22/18 Thiamine Hcl (VITAMIN B-1) 100 Mg Tablet, 100 MG PO QDAY, #30 TAB Prov:RADHA LI DO 12/22/18 Spironolactone (SPIRONOLACTONE) 100 Mg Tablet, 100 MG PO QDAY, #30 TAB Prov:RADHA LI DO 12/22/18 Reviewed Nurses Notes: Yes Old Medical Records Reviewed: Yes Hx Smoking: Yes Smoking Status: Former Smoker Exposure to Second Hand Smoke?: Yes Hx Substance Use Disorder: No Hx Alcohol Use: Yes (4-5 BEERS/DAY) Constitutional Vital Sign - Last 24 Hours 01/15/19 01/15/19 01/15/19 01/15/19 09:37 09:47 10:00 10:30 Pulse 102 98 98 Resp 24 19 22 B/P (MAP) 91/80 96/80 (85) 109/78 (88) Pulse Ox 85 92 90 O2 Delivery Room Air O2 Flow Rate 2.0 01/15/19 01/15/19 01/15/1919 11:00 11:30 12:00 12:30 Pulse 98 96 95 97 Resp 21 17 17 20 B/P (MAP) 100/77 (85) 99/77 (84) 107/73 (84) 83/59 (67) Pulse Ox 91 92 92 89 01/15/19 12:35 O2 Flow Rate 4.0 Physical Exam General Appearance: The patient is alert, has no immediate need for airway protection and no current signs of toxicity. Eyes: Pupils equal and round, sclera icterus Respiratory: Chest is non tender, lungs are clear to auscultation. Cardiac: regular rate and rhythm Gastrointestinal: Abdomen is distended with ascites, firm but no TTP Neck: Neck is supple and non tender. Extremities have full range of motion and are non tender. Skin: Profound jaundice Neuro: pt. has aterixis, alert and oriented x3. DIFFERENTIAL DIAGNOSIS: After history and physical exam differential diagnosis was considered for weakness including but not limited to electrolyte abnormality, depression, anxiety, CVA, spinal cord abnormality, and infectious causes. Medical Decision Making Data Points Result Diagram: 01/15/19 0950 01/15/19 0950 Laboratory Hematology Test 01/15/19 09:43 01/15/19 09:50 Whole Blood Glucose 100 mg/DL (75-110) Red Blood Count 3.76 M/uL (4.00-5.60) Mean Corpuscular Volume 92.6 fL (80.0-96.0) Mean Corpuscular Hemoglobin 31.5 pg (26.0-33.0) Mean Corpuscular Hemoglobin Concent 34.0 g/dL (32.0-36.0) Red Cell Distribution Width 31.9 % (11.5-14.5) Mean Platelet Volume 6.9 fL (7.2-11.1) Neutrophils (%) (Auto) 78.5 % (39.4-72.5) Lymphocytes (%) (Auto) 12.4 % (17.6-49.6) Monocytes (%) (Auto) 6.9 % (4.1-12.4) Eosinophils (%) (Auto) 0.8 % (0.4-6.7) Basophils (%) (Auto) 1.4 % (0.3-1.4) Nucleated RBC Relative Count (auto) 0.1 /100WBC Neutrophils # (Auto) 8.5 K/uL (2.0-7.4) Lymphocytes # (Auto) 1.3 K/uL (1.3-3.6) Monocytes # (Auto) 0.7 K/uL (0.3-1.0) Eosinophils # (Auto) 0.1 K/uL (0.0-0.5) Basophils # (Auto) 0.2 K/uL (0.0-0.1) Nucleated RBC Absolute Count (auto) 0.01 K/uL Peripheral Blood Smear Yes Y/N Prothrombin Time 29.2 seconds (12.0-14.4) Prothromb Time International Ratio 2.70 Activated Partial Thromboplast Time 50 seconds (23-35) Sodium Level 116 mmol/L (137-145) Potassium Level 3.6 mmol/L (3.5-5.0) Chloride Level 80 mmol/L (98-107) Carbon Dioxide Level 23 mmol/L (22-30) Blood Urea Nitrogen 20 mg/dl (9-21) Creatinine 1.00 mg/dl (0.66-1.25) Glomerular Filtration Rate Calc > 60.0 Random Glucose 94 mg/dl (75-110) Calcium Level 8.3 mg/dl (8.4-10.2) Total Bilirubin 19.3 mg/dl (0.2-1.3) Aspartate Amino Transf (AST/SGOT) 95 U/L (0-35) Alanine Aminotransferase (ALT/SGPT) 35 U/L (0-56) Alkaline Phosphatase 183 U/L (0-126) Total Protein 8.1 g/dl (6.3-8.2) Albumin 2.7 g/dl (3.5-5.0) Chemistry Test 01/15/19 09:43 01/15/19 09:50 Whole Blood Glucose 100 mg/DL (75-110) White Blood Count 10.8 k/uL (4.5-11.0) Red Blood Count 3.76 M/uL (4.00-5.60) Hemoglobin 11.8 g/dL (14.0-18.0) Hematocrit 34.8 % (42.0-52.0) Mean Corpuscular Volume 92.6 fL (80.0-96.0) Mean Corpuscular Hemoglobin 31.5 pg (26.0-33.0) Mean Corpuscular Hemoglobin Concent 34.0 g/dL (32.0-36.0) Red Cell Distribution Width 31.9 % (11.5-14.5) Platelet Count 199 K/uL (150-450) Mean Platelet Volume 6.9 fL (7.2-11.1) Neutrophils (%) (Auto) 78.5 % (39.4-72.5) Lymphocytes (%) (Auto) 12.4 % (17.6-49.6) Monocytes (%) (Auto) 6.9 % (4.1-12.4) Eosinophils (%) (Auto) 0.8 % (0.4-6.7) Basophils (%) (Auto) 1.4 % (0.3-1.4) Nucleated RBC Relative Count (auto) 0.1 /100WBC Neutrophils # (Auto) 8.5 K/uL (2.0-7.4) Lymphocytes # (Auto) 1.3 K/uL (1.3-3.6) Monocytes # (Auto) 0.7 K/uL (0.3-1.0) Eosinophils # (Auto) 0.1 K/uL (0.0-0.5) Basophils # (Auto) 0.2 K/uL (0.0-0.1) Nucleated RBC Absolute Count (auto) 0.01 K/uL Peripheral Blood Smear Yes Y/N Prothrombin Time 29.2 seconds (12.0-14.4) Prothromb Time International Ratio 2.70 Activated Partial Thromboplast Time 50 seconds (23-35) Glomerular Filtration Rate Calc > 60.0 Calcium Level 8.3 mg/dl (8.4-10.2) Total Bilirubin 19.3 mg/dl (0.2-1.3) Aspartate Amino Transf (AST/SGOT) 95 U/L (0-35) Alanine Aminotransferase (ALT/SGPT) 35 U/L (0-56) Alkaline Phosphatase 183 U/L (0-126) Total Protein 8.1 g/dl (6.3-8.2) Albumin 2.7 g/dl (3.5-5.0) Coagulation Test 01/15/19 09:50 Prothrombin Time 29.2 seconds Prothromb Time International Ratio 2.70 Activated Partial Thromboplast Time 50 seconds ED Course/Re-evaluation ED Course Acute on chronic liver failure. Hyponatremia with a sodium of 116. I spoke with a tool procurement coordinator at , Dr. Cortez Dean, who said the pt. did not need a tertiary care center in this acute setting. She suggested admission for medical management of sodium and albumin stabilization. The pt. can follow up with their service upon discharge. Decision to Disposition Date: Jan 15, 2019 Decision to Disposition Time: 13:30 Depart Departure Latest Vital Signs Vital Signs Date Time Temp Pulse Resp B/P (MAP) Pulse Ox O2 Delivery O2 Flow Rate FiO2 01/15/19 12:35 4.0 01/15/19 12:30 97 20 83/59 (67) 89 01/15/19 09:37 Room Air Impression: Primary Impression: Hyponatremia Additional Impression: Acute on chronic alcoholic liver disease Condition: Improved Disposition: Admitted from ER Problem Qualifiers LEMUEL DYSON MD Jan 15, 2019 09:35
[2019-01-15 10:00] LABS: PLATELET COUNT, AUTOMATED 199 K/uL (150-450)
[2019-01-15 10:09] LABS: INR 2.7
[2019-01-15] MEDS ORDERED: NS(*) 0.9% 1000 ML BAG 1,000 ML IV ONE (10:25)
--- NOTE | 2019-01-15 10:29 | RADIOLOGY IMAGING REPORT ---
FACILITY: [facility] PATIENT NAME: Sim Alba : 1965 MR: [id number] V: [id number] EXAM DATE: ORDERING PHYSICIAN: LEMUEL DYSON TECHNOLOGIST: Location: [facility] Patient: Sim Alba : 1965 Visit/Account:[id number] Date of Sevice: 01/15/2019 Portable chest, one view. HISTORY: Weakness, liver failure. COMPARISON: 12/23/2018. EKG leads project on the chest. The heart size is normal. The aortic knob is calcified. Pulmonary ves sels are normal. Streaky and patchy opacities are present in the right lung base. The right lateral c ostophrenic sulcus is moderately blunted. The right hemidiaphragm is partially obscured. A small amou nt of fluid or thickening is present in the right lung fissures. The left lung is clear. No pneumotho rax. IMPRESSION: Right lower chest opacification consistent with a combination of lung consolidation and pleural fluid and/or thickening. Report Dictated By: Jomar Rowley MD at 01/15/2019 10:23 AM Report E-Signed By: Jomar Rowley MD at 01/15/2019 10:26 AM WSN:[id number]
--- NOTE | 2019-01-15 12:07 | EKG ---
FACILITY: [facility] PATIENT NAME: MARK ROJO : [id number] MR: [id number] V: [id number] EXAM DATE: ORDERING PHYSICIAN: LEMUEL DYSON TECHNOLOGIST: MARYLOU Test Reason : ELECTROLYTE IMBALANC Blood Pressure : / mmHG Vent. Rate : 098 BPM Atrial Rate : 098 BPM P-R Int : 206 ms QRS Dur : 082 ms QT Int : 380 ms P-R-T Axes : 002 -05 004 degrees QTc Int : 485 ms Normal sinus rhythm with 1st degree AV block Low voltage QRS Diffuse, non-specifc, T flattening Evidence of old inferior NM When compared with ECG of 23-DEC-2018 21:22, Now with diffuse T flattening Confirmed by JANEL MERAZ ([id number]) on 01/15/2019 4:30:56 PM Referred By: KARIS Confirmed By:JANEL MERAZ
[2019-01-15 13:38] VITALS: BP 96/61
[2019-01-15] MEDS ORDERED: FURO-47 PO (13:53)
[2019-01-15] MEDS ORDERED: LORazepam 1 MG TAB PO PRN (15:10)
[2019-01-15] MEDS ORDERED: LORazepam 2 MG/ML VIAL IVP PRN ×2 (15:10)
--- NOTE | 2019-01-15 15:30 | History & Physical ---
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 He was accompanied to the ER by his Mom, but she isn't here now. He was unable to get out of bed. He denies f/c/n/v/diarrhea/cp/sob/worsening edema. He does report some swelling in his ankles and swelling in abdomen. His last drink was before 01/19. He has noted some black stools. He reports having one seizure since he was last in the hospital about 2 weeks ago. It was a number of days ago and none since. In the ER, he was started on IVF. The ER provider spoke to a methane gas collection system operator, who didn't recommend transfer, but just treatment of low sodium. History Problems: (1) Hyponatremia Status: Acute (2) Acute on chronic alcoholic liver disease Status: Acute (3) Alcohol use Status: Chronic (4) Seizures Status: Resolved (5) Dependent edema Status: Chronic Home Meds Active Scripts Lactulose (LACTULOSE) 10 Gm/15 Ml Solution, 20 GM PO DAILY for 30 Days, #1 BOT 1 Refill Hold if more than 3 loose bowel movements daily. Prov:SHIV SCOTT MD 12/26/18 Pantoprazole Sodium (PANTOPRAZOLE SODIUM) 40 Mg Tablet.dr, 40 MG PO BID, #60 TAB Prov:RADHA LI DO 12/22/18 Thiamine Hcl (VITAMIN B-1) 100 Mg Tablet, 100 MG PO QDAY, #30 TAB Prov:RADHA LI DO 12/22/18 Spironolactone (SPIRONOLACTONE) 100 Mg Tablet, 100 MG PO QDAY, #30 TAB Prov:RADHA LI DO 12/22/18 Reported Medications Furosemide (FUROSEMIDE) 40 Mg Tablet, 1 TAB PO HS, TAB 01/15/19 Discontinued Scripts Potassium Chloride (POTASSIUM CHLORIDE) 10 Meq Tab.er.prt, 10 MEQ PO QDAY, #5 TAB 0 Refills Prov:SHIV SCOTT MD 12/26/18 Allergies: Coded Allergies: No Known Allergies (Verified Allergy, Mild, 01/15/19) Patient History: Patient reports no known family medical history. Hx Smoking: Yes Smoking Status: Former Smoker Exposure to Second Hand Smoke?: Yes Caffeine Intake: Coffee, Soda Caffeine/Cups Per Day: 2 Hx Alcohol Use: Yes (4-5 BEERS/DAY) Hx Substance Use Disorder: No Review of Systems All Systems Reviewed/Normal: Yes, Except as Noted Exam Vital Signs Vital Signs Date Time Temp Pulse Resp B/P (MAP) Pulse Ox O2 Delivery O2 Flow Rate FiO2 01/15/19 13:38 93 Nasal Cannula 4.0 01/15/19 13:38 97.5 86 20 96/61 (73) General Appearance: Alert, Awake, No Acute Distress Neuro: Other (Knows where he is the year and why he is here. Thought it was M arch. Answered questions appropriately.) ENT: Moist Mucous Membranes Cardiovascular: Regular Rate and Rhythm Respiratory: Clear to Auscultation GI: Abd Soft and Non-Tender (Distended) Extremities: Edema (1-2+ to knees bilaterally) Integumentary: Jaundice Medical Decision Making Data Points Result Diagram: 01/15/1950 01/15/19 0950 Item Value Date Time Neutrophils (%) (Auto) 78.5 % H 01/15/19 0950 Lymphocytes (%) (Auto) 12.4 % L 01/15/19 0950 Monocytes (%) (Auto) 6.9 % 01/15/19 0950 Sodium Level 126 mmol/L L 12/26/18 0528 Potassium Level 3.2 mmol/L L 12/26/18 0528 Chloride Level 95 mmol/L L 12/26/18 0528 Blood Urea Nitrogen 6 mg/dl L 12/26/18 0528 Creatinine 0.70 mg/dl 12/26/18 0528 Carbon Dioxide Level 25 mmol/L 12/26/18 0528 Blood Urea Nitrogen 20 mg/dl 01/15/19 0950 Creatinine 1.00 mg/dl 01/15/1952 Sodium Level 116 mmol/L *L 01/15/19 0950 Osmolality 242 mOSM/K *L 01/15/19 1433 Total Bilirubin 8.7 mg/dl H 12/26/18 0528 Total Bilirubin 19.3 mg/dl *H 01/15/19 0950 Aspartate Amino Transf (AST/SGOT) 95 U/L H 01/15/19 0950 Alanine Aminotransferase (ALT/SGPT) 35 U/L 01/15/19 0950 Alkaline Phosphatase 183 U/L H 01/15/19 0950 Alkaline Phosphatase 131 U/L H 12/26/18 0528 Alanine Aminotransferase (ALT/SGPT) 33 U/L 12/26/18 0528 Aspartate Amino Transf (AST/SGOT) 69 U/L H 12/26/18 0528 EKG / Imaging Imaging CXR - Right lower chest opacification consistent with a combination of lung consolidation and pleural fluid and/or thickening. Assessment and Plan Problems: (1) Hyponatremia Status: Acute Assessment & Plan: He chronically has a low sodium, but this is much worse. L ikely, related to cirrhosis and exacerbated by Lasix use. Urine studies pending. Recheck BMP now. Seizure precautions. Fluid restrict. (2) Acute on chronic alcoholic liver disease Status: Acute Assessment & Plan: Coagulopathic, ascites/edema, hyponatremic, elevated total bilirubin and elevated ammonia. Viral hepatitis studies only showed antibodies to hepatitis A. Total bilirubin is worsening. Animal Shelter Clerk that the ER spoke with didn't think there was any need for transfer. Patient reports that his last drink was around 01/19. Will watch with CIWA. Follow LFT's. The patient wants to be a full code and understands that his liver may be progressing to complete failure which would be fatal to him. Will ask OT/PT to eval for his severe weakness. (3) Anemia Status: Chronic Venous Thromboembolism Antithrombotics Is Pt On Any Antithrombotics?: No Exam Sepsis Risk: No Definite Risk JANEL MERAZ MD Jan 15, 2019 15:30
[2019-01-15 15:51] VITALS: BP 94/61
[2019-01-15] MEDS ORDERED: SODIUM CHLORIDE 1 GR TAB PO ONE (17:00)
[2019-01-15 20:30] VITALS: BP 103/77
[2019-01-15] MEDS: NS(*) 0.9% 1000 ML BAG 1,000 ML IV PRN (23:33)
[2019-01-16 00:25] VITALS: BP 110/74
[2019-01-16 04:25] VITALS: BP 112/79
[2019-01-16 06:30] LABS: PLATELET COUNT, AUTOMATED 155 K/uL (150-450)
[2019-01-16 06:37] LABS: INR 2.86
[2019-01-16] MEDS: NS(*) 0.9% 1000 ML BAG 1,000 ML IV PRN ×2 (07:01→18:35)
[2019-01-16 08:06] VITALS: BP 100/74
[2019-01-16] MEDS: FOLIC ACID 1 MG TAB PO SCH (09:22)
[2019-01-16] MEDS: THIAMINE HCL 100 MG TAB PO SCH (09:22)
--- NOTE | 2019-01-16 10:30 | Medical Nutrition Therapy ---
Nutrition Anthropometrics Height (Inches): 75.00 Height (Calculated Centimeters: [phone] Weight (Pounds): 207 Weight (Calculated Kilograms): 94.092 Russ Nutrition Score: Very Poor Russ Nutrition Risk Score: 16 Dietary Referral Nutrition Risk Factors: Nutrition Risk Comment: Physical Findings Physical Appearance: Overweight BMI 25-29 Skin Appearance Skin Appearance: Edema Edema Location Modifier: Both Edema Location: Lower Extremity Type of Edema: Degree of Edema: 2+ Gastrointestinal Symptoms GI Symtoms: Tube Present: Bowel Sounds: Recent Bowel Pattern: Stool Characteristics: Nutritional Diagnosis Nutritional Risk Acuity 2: Liver Cirrhosis Nutritional Risk Acuity 3: Alcohol abuse Nutritional Risk Acuity 4: Modified Diet Past Medical History: Alcoholic liver disease, espophagial variceies, GI bleed, hyponatremia, hoarseness, alcohol abuse, seizures, anemia, dependent edema Nutritional Acuity: 2-Moderate Nutrition Diagnosis: Excessive Alcohol Intake Nutrition Etiology: Alcohol Addiction Nutrition Problem/Etiology/Sym: Excessive alcohol intake as related to alcohol addiction as evidenced by ESLD, cirrhosis, seizures, bilirubin of 116.4, ascites Energy Requirement: 2459 (m st jeor X 1.1 X 1.2) Protein Requirement: 75.2 (0.8 g protein/kg) Fluid Requirement: 1500 ([id number] fluid restriction) Diet Type: Diet as Tolerated ANTHONY/REG, Fluid Restricted Nutrition Intervention: Cont diet as ordered, Encourage intake, Vit/min support Nutrition Monitoring & Eval Nutrition Goals: Eat 50-100% Meal, Fluid Restrictions Nutrition Follow-Up: Poor Intake Nutrition Monitoring: poor intake of 0% of meals offered RD Patient Assessment Time: [address] Assessment Type: RD Assessment Patient Nutrition Acuity: 2-Moderate Follow Up Date: Jan 19, 2019 Nutritional Comment: Pt admitted with weakness. Known to have ESLD/cirrhosis due to alcohol abuse. Hx of hyponatremia, seizures, dependent edema, anemia, and alcohol abuse. Reported black stool. Currenlty on ANTHONY and fluid restriction with 0% intake. Pt with 2+ pitting edema in BLE and generalized ascites. Pt on folic acid supplement and thiamine supplement. Na of 117 is decreased, random glucose ranged from 87-122, bilirubin of 16.4 is elevated, AST of 757 is elevated, alkaline phophatase of 144 is increased, and albumin of 2.2 is decreased. Monitor for improvement in intakes.-PRISCILLA FLOWER Jan 16, 2019 10:29
--- NOTE | 2019-01-16 13:50 | Hospitalist Progress Note ---
Subjective Progress Notes Subjective He reports feeling improved. No abdominal pain. No dyspnea. No fever. Physical Exam Vital Signs Date Time Temp Pulse Resp B/P (MAP) Pulse Ox O2 Delivery O2 Flow Rate FiO2 01/16/19 09:26 84 01/16/19 09:26 Oxy Mask 4.0 01/16/19 08:06 97.2 97 100/74 (83) 01/15/19 20:30 24 Intake and Output 01/16/19 07:00 Intake Total 2300 ml Output Total 780 ml Balance 1520 ml Intake Oral 0 ml IV Total 2300 ml Output Urine Total 780 ml General Appearance: Alert, Awake, Other (deeply jaundiced) Eyes: Other (sclera icteric) Cardiovascular: Regular Rate and Rhythm Respiratory: Other (decreased at right base, but otherwise clear) Chest: No Tenderness GI: Other (distended with fluid wave present/no tenderness elicited) Extremities: Warm, Perfused, Edema Result Diagram: 01/16/1960101/16/19601 Assessment and Plan Problems: (1) Acute on chronic alcoholic liver disease Status: Acute Assessment & Plan: He is currently coagulopathic, with ascites/edema, hyponatremia, elevated total bilirubin and elevated ammonia. Viral hepatitis studies only showed antibodies to hepatitis A. Drop Wire Operator that the ER spoke with didn't think there was any need for transfer. Patient reports that his last drink was around 12/19/18. Will watch with CIWA, but he does not appear to have acute withdrawal. I had lengthy discussion with the patient and his mother regarding his current status and prognosis. The patient and his mother understand his liver dysfunction appears to be progressing towards complete failure. Unfortunately, he would not be a candidate for evaluation for transplant as he is only 3-4 weeks abstinent from alcohol. Given all of this, his prognosis is quite poor. He will discuss his options for ongoing care with his family. (2) Hyponatremia Status: Acute Assessment & Plan: He chronically has a low sodium, but this is much worse. His sodium is slightly better today (117). Likely, the hyponatremia is related to his cirrhosis and exacerbated by Lasix use. Seizure precautions. Fluid restrict. Watch. (3) Anemia Status: Chronic Assessment & Plan: Stable. Exam Sepsis Risk: No Definite Risk SHIV SCOTT MD Jan 16, 2019 13:50
[2019-01-16 14:28] VITALS: BP 106/74
[2019-01-16 19:17] VITALS: BP 109/80
[2019-01-17] VITALS (7 sets, daily range): BP systolic 78–112; BP diastolic 58–79
[2019-01-17 06:18] LABS: PLATELET COUNT, AUTOMATED 126 K/uL (150-450)
[2019-01-17 06:23] LABS: INR 2.79
[2019-01-17] MEDS: NS(*) 0.9% 1000 ML BAG 1,000 ML IV PRN (07:41)
[2019-01-17] MEDS ORDERED: INFLUENZA VIRUS VAC 0.5ML SYR IM ONLY ONE (09:00)
[2019-01-17] MEDS: FOLIC ACID 1 MG TAB PO SCH (09:52)
[2019-01-17] MEDS: THIAMINE HCL 100 MG TAB PO SCH (09:52)
--- NOTE | 2019-01-17 14:24 | Hospitalist Progress Note ---
Subjective Progress Notes Subjective 53M admitted for hyponatremia, weakness. BERENICE overnight sodium is stable. Physical Exam Vital Signs Date Time Temp Pulse Resp B/P (MAP) Pulse Ox O2 Delivery O2 Flow Rate FiO2 01/17/19 13:21 20 94 Oxy Mask 5.0 01/17/19 13:08 96.6 87 104/77 (86) Intake and Output 01/17/19 06:59 Intake Total 4608 ml Output Total 575 ml Balance 4033 ml Intake Oral 1080 ml IV Total 3528 ml Output Urine Total 575 ml General Appearance: No Acute Distress Neuro: No Gross deficits Cardiovascular: Normal Rhythm & Peripheral Pulses Respiratory: No Respiratory Distress GI: Other (distended, + fluid wave) Extremities: Soft and Non Tender, Warm, Pulses Integumentary: Jaundice Result Diagram: 01/17/1955701/17/19557 Assessment and Plan Problems: (1) Acute on chronic alcoholic liver disease Status: Acute Assessment & Plan: MELD 33, 45% 90 day survival. Viral hepatitis studies only showed antibodies to hepatitis A. Unix Manager that the ER spoke with didn't think there was any need for transfer. Patient reports that his last drink was around 12/19/18. Will watch with [employer], but he does not appear to have acute withdrawal. I had lengthy discussion with the patient and his mother regarding his current status and prognosis. The patient and his mother understand his liver dysfunction appears to be progressing towards complete failure. Unfortunately, he would not be a candidate for evaluation for transplant as he is only 3-4 weeks abstinent from alcohol. We will discuss his options for ongoing care with his family. (2) Hyponatremia Status: Acute Assessment & Plan: He chronically has a low sodium, but this is worse. Continue fluid restriction, may need paracentesis, restart Lasix and Spironolactone. (3) Anemia Status: Chronic Assessment & Plan: Stable. Exam Sepsis Risk: No Definite Risk MARTINEZ DAJA CARRILLO DO Jan 17, 2019 14:24
[2019-01-17] MEDS ORDERED: KCL (*) 20 MEQ/100 ML PREMIX 100 ML IV SCH (15:00)
[2019-01-17] MEDS ORDERED: NICOTINE 14 MG/24 HR PATCH TD PRN (16:10)
[2019-01-17] MEDS ORDERED: LORazepam 2 MG/ML VIAL IV PRN (16:10)
[2019-01-17] MEDS ORDERED: PATCH REMOVAL 1 EA TP PRN (16:10)
[2019-01-17] MEDS ORDERED: MORPHINE 10 MG/5 ML UDC PO PRN (16:10)
[2019-01-17] MEDS ORDERED: NICOTINE INH SYSTEM 10 MG/INH INH PRN (16:10)
[2019-01-17] MEDS ORDERED: BISACODYL 10 MG SUPP PR PRN (16:10)
[2019-01-17] MEDS ORDERED: SCOPOLAMINE 1.5 MG PATCH TD PRN (16:10)
[2019-01-17] MEDS ORDERED: MAGNESIUM HYDROXIDE* 30ML UDCP PO PRN (16:10)
[2019-01-17] MEDS ORDERED: ONDANSETRON 4 MG/2 ML VIAL IVP PRN (16:10)
[2019-01-17] MEDS ORDERED: APAP/HYDROCODONE 325/5 TAB PO PRN (16:10)
--- NOTE | 2019-01-17 17:43 | Miscellaneous Provider Note ---
Miscellaneous Provider Note Note Patient elected comfort care and was transitioned to comfort cares only. After he discussed with mother he then elected to stop comfort care and begin medical management of his ESLD. Will begin diuretic and sodium and fluid restriction. DAJA HEATON DO Jan 17, 2019 17:42
[2019-01-17] MEDS: KCL (*) 20 MEQ/100 ML PREMIX 100 ML IV SCH ×2 (18:52→21:14)
[2019-01-18 03:54] VITALS: BP 118/83
[2019-01-18 07:15] VITALS: BP 102/75
--- NOTE | 2019-01-18 08:12 | RADIOLOGY IMAGING REPORT ---
FACILITY: [facility] PATIENT NAME: Sim Alba : 1965 MR: [id number] V: [id number] EXAM DATE: ORDERING PHYSICIAN: DAJA CARRILLO TECHNOLOGIST: Location: [facility] Patient: Sim Alba : 1965 Visit/Account:[id number] Date of Sevice: 01/18/2019 CHEST SINGLE AP Additional pertinent History: Increased O2 needs. Cough COMPARISON STUDIES: 01/15/2019 FINDINGS: Support lines and catheters: None Lungs and Pleura: Increasing right lower lung opacity compatible with worsening effusion and consoli dation/infiltrate in the right lower lung which is now extending up to the posterior right fourth rib . Developing infiltrate/consolidation in the left lower lung medially Heart and vasculature: Negative. Rhonda and Mediastinum: Negative. Bones and Chest wall: Negative. Upper Abdomen: Negative. IMPRESSION: 1. Worsening effusion and infiltrate/consolidation in the right lung as described. Developing infiltr ate/consolidation in the left lower lung medially. Report Dictated By: Tobias Chavez MD at 01/18/2019 8:03 AM Report E-Signed By: Tobias Chavez MD at 01/18/2019 8:08 AM WSN:[id number]
[2019-01-18] MEDS ORDERED: SPIRONOLACTONE 25 MG TAB PO SCH ×2 (09:00)
[2019-01-18] MEDS ORDERED: FUROSEMIDE 40 MG TAB PO SCH ×2 (09:00)
[2019-01-18] MEDS ORDERED: THIAMINE HCL 100 MG TAB PO SCH (09:00)
[2019-01-18] MEDS ORDERED: FOLIC ACID 1 MG TAB PO SCH (09:00)
[2019-01-18] MEDS ORDERED: SPIRONOLACTONE 25 MG TAB PO ONE (10:00)
[2019-01-18] MEDS ORDERED: FUROSEMIDE 20 MG/2 ML VIAL IVP ONE (10:00)
[2019-01-18] MEDS ORDERED: ALBUMIN HUMAN 25% 50 ML VIAL IVPB ONE (11:55)
--- NOTE | 2019-01-18 12:03 | Hospitalist Progress Note ---
Subjective Progress Notes Subjective He denies any SOB or pain. However, staff reported that he was SOB during the night. When asked about it, he agrees that he did have some SOB during the night. Physical Exam Vital Signs Date Time Temp Pulse Resp B/P (MAP) Pulse Ox O2 Delivery O2 Flow Rate FiO2 01/18/19 07:58 94 Oxy Mask 6.0 01/18/19 07:15 97.5 92 18 102/75 (84) Intake and Output 01/18/19 07:00 Intake Total 2188 ml Output Total 275 ml Balance 1913 ml Intake Oral 283 ml IV Total 1905 ml Output Urine Total 275 ml General Appearance: Other (Awakens easily. Breathing comfortably) Neuro: Other (Answers questions appropriately. Understands questions and able to give informed answers) GI: Other (Very distended and firm. He denies tenderness. Caput medusa.) Integumentary: Jaundice Result Diagram: 01/17/19 0558 01/18/19 0515 Assessment and Plan Problems: (1) Acute on chronic alcoholic liver disease Status: Acute Assessment & Plan: MELD 33, 45% 90 day survival. Viral hepatitis studies only showed antibodies to hepatitis A. Agriculture Specialist that the ER spoke with didn't think there was any need for transfer. Patient reports that his last drink was around 12/19/18. Will watch with CIWA, but he does not appear to have acute withdrawal. There have been multiple discussions with the patient and his mother regarding his current status and prognosis. The patient and his mother understand his liver dysfunction appears to be progressing towards complete failure. Unfortunately, he would not be a candidate for evaluation for transplant as he is only 3-4 weeks abstinent from alcohol. They want to see how diuresis might help his ascites/edema. He adamant that he doesn't have significant SOB, so will not attempt a large volume paracentesis. Will add Lactulose and restart spironolactone and use IV Lasix. (2) Hyponatremia Status: Acute Assessment & Plan: Secondary to severe ESLD. He chronically has a low sodium, but this is worse. Continue fluid restriction, may need paracentesis, restart Lasix and Spironolactone. Will also give a dose of albumin. BMP tonight. (3) Anemia Status: Chronic Assessment & Plan: Stable. Exam Sepsis Risk: No Definite Risk JANEL MERAZ MD Jan 18, 2019 12:03
[2019-01-18] MEDS ORDERED: ALBUMIN HUMAN 25% 50 ML VIAL 50 ML IVPB ONE (13:00)
[2019-01-18 14:53] VITALS: BP 106/70
[2019-01-18 19:59] VITALS: BP 110/87
[2019-01-18] MEDS ORDERED: oxyCODONE HCL 5 MG CAP PO ONE (22:25)
[2019-01-19 03:54] VITALS: BP 109/78
[2019-01-19 07:23] LABS: PLATELET COUNT, AUTOMATED 117 K/uL (150-450)
[2019-01-19 07:51] VITALS: BP 104/78
[2019-01-19] MEDS ORDERED: LACTULOSE 10 GM/15 ML UDCUP PO SCH (09:00)
[2019-01-19] MEDS ORDERED: PROMETHAZINE 25 MG/ML 1 ML AMP IVP PRN (09:20)
[2019-01-19] MEDS ORDERED: MORPHINE 2 MG/ML SYR IVP PRN (09:20)
--- NOTE | 2019-01-19 09:27 | Hospitalist Progress Note ---
Subjective Progress Notes Subjective He is somewhat more somnolent. He is also more tachypneic. He is able to understand questions and answers appropriately. Physical Exam Vital Signs Date Time Temp Pulse Resp B/P (MAP) Pulse Ox O2 Delivery O2 Flow Rate FiO2 01/19/19 07:51 98.3 106 26 104/78 (87) 92 Oxy Mask 6.0 Intake and Output 01/19/19 07:00 Intake Total 453 ml Output Total 650 ml Balance -197 ml Intake Oral 400 ml IV Total 53 ml Output Urine Total 650 ml General Appearance: Other (somewhat somnolent, but does awaken and answer all questions/deeply jaundiced) Eyes: Other (sclera icteric) Cardiovascular: Other (Slightly tachycardic regular) Respiratory: Other (diminished at bases with few scattered rhonchi) GI: Other (distended fairly taut/nontender) Extremities: Warm, Perfused, Edema Result Diagram: 01/19/19 0711 01/19/19 0558 Assessment and Plan Problems: (1) Acute on chronic alcoholic liver disease Status: Acute Assessment & Plan: MELD 33, 45% 90 day survival. Viral hepatitis studies only showed antibodies to hepatitis A. Newsagent that the ER spoke with didn't think there was any need for transfer. Patient reports that his last drink was around 12/19/18. Will watch with CIWA, but he does not appear to have acute withdrawal. There have been multiple discussions with the patient and his mother regarding his current status and prognosis. The patient and his mother understand his liver dysfunction appears to be progressing towards complete failure. Unfortunately, he would not be a candidate for evaluation for transplant as he is only 3-4 weeks abstinent from alcohol. It now appears he may be developing an acute respiratory infection/pneumonia. We had discussions regarding his options for ongoing care. At this point, he now wishes to transition to comfort care and "allow things to run their course". His mother is in agreement as well. (2) Hyponatremia Status: Acute Assessment & Plan: Secondary to severe ESLD. He chronically has a low sodium, but it has been much worse. He is transitioning to comfort care/end-of-life care. (3) Anemia Status: Chronic Assessment & Plan: Stable. Exam Sepsis Risk: Severe Sepsis Risk SHIV SCOTT MD Jan 19, 2019 09:27
[2019-01-19 14:56] VITALS: Ht 190.5 cm; Wt 96.6 kg
--- NOTE | 2019-01-19 16:34 | Medical Nutrition Therapy ---
Nutrition Anthropometrics Height (Inches): 75.00 Height (Calculated Centimeters: 190.873777 Weight (Pounds): 213 Weight (Calculated Kilograms): 96.785 BMI: 26.7 Russ Nutrition Score: Probably Inadequate Russ Nutrition Risk Score: 13 Dietary Referral Nutrition Risk Factors: Nutrition Risk Comment: Physical Findings Physical Appearance: Overweight BMI 25-29 Skin Appearance Skin Appearance: Edema Edema Location Modifier: Both Edema Location: Lower Extremity Type of Edema: Degree of Edema: 1+ Gastrointestinal Symptoms GI Symtoms: Appetite Changes Tube Present: Bowel Sounds: Recent Bowel Pattern: Stool Characteristics: Nutritional Diagnosis Nutritional Risk Acuity 2: Liver Cirrhosis Nutritional Risk Acuity 3: Alcohol abuse Nutritional Risk Acuity 4: Modified Diet Past Medical History: Alcoholic liver disease, espophagial variceies, GI bleed, hyponatremia, hoarseness, alcohol abuse, seizures, anemia, dependent edema Nutritional Acuity: 2-Moderate Nutrition Diagnosis: Inadequate Food Intake Nutrition Etiology: End of Life Care Nutrition Problem/Etiology/Sym: AEB intake averaging 36% Energy Requirement: 2459 (m st jeor X 1.1 X 1.2) Protein Requirement: 75.2 (0.8 g protein/kg) Fluid Requirement: 1500 (8938-0716 fluid restriction) Diet Type: Diet as Tolerated ANTHONY/REG, Fluid Restricted Nutrition Intervention: Cont diet as ordered Nutrition Monitoring & Eval Nutritional Goals Comment: Offer food and fluids as appropriate for end of life care Nutrition Follow-Up: Poor Intake RD Patient Assessment Time: [address] Assessment Type: RD Re-Assessment Patient Nutrition Acuity: 2-Moderate Follow Up Date: Jan 24, 2019 Nutritional Comment: 01/19 Pt admitted with weakness. Known to have ESLD/cirrhosis due to alcohol abuse. Hx of hyponatremia, seizures, dependent edema, anemia, and alcohol abuse. Reported black stool. Currenlty on ANTHONY, 2g NA, and fluid restriction with 37% intake. Pt with 2+ pitting edema in BLE and generalized ascites. Which has likely caused the 6lb increase in 3 days. Pt is no longer on folic acid and thiamine supplement. Na of 115 is very low and decreasing, bilirubin of 20.1 is very elevated and continuing to increase, AST of 85 is elevated, alkaline phophatase of 165 is elevated, and albumin of 2.6 is low and increased from 2.1. Pt is being changed to end of life care. LENORA CHAU Jan 19, 2019 16:34
[2019-01-19 19:19] VITALS: BP 108/72
[2019-01-20 08:02] VITALS: BP 96/59
[2019-01-20] MEDS ORDERED: LORazepam 2 MG/ML VIAL IM PRN (09:10)
[2019-01-20] MEDS ORDERED: MORPHINE 2 MG/ML SYR SC PRN (09:10)
[2019-01-20] MEDS ORDERED: PROMETHAZINE 25 MG/ML 1 ML AMP IM ONE (09:10)
--- NOTE | 2019-01-20 09:17 | Transfer Summary (ECF/SWB) ---
Transfer Summary (ECF/SWB) Problems: (1) Acute on chronic alcoholic liver disease Status: Acute Assessment & Plan: MELD 33, 45% 90 day survival. Viral hepatitis studies only showed antibodies to hepatitis A. Navy Material Inspector that the ER spoke with didn't think there was any need for transfer. Patient reports that his last drink was around 12/19/18. Will watch with CIWA, but he does not appear to have acute withdrawal. There have been multiple discussions with the patient and his mother regarding his current status and prognosis. The patient and his mother understand his liver dysfunction appears to be progressing towards complete failure. Unfortunately, he would not be a candidate for evaluation for transplant as he is only 3-4 weeks abstinent from alcohol. It now appears he may be developing an acute respiratory infection/pneumonia. We had discussions regarding his options for ongoing care. At this point, he now wishes to transition to comfort care and "allow things to run their course". His mother is in agreement as well. He will be transferred to [facility] for continued care. (2) Hyponatremia Status: Acute Assessment & Plan: Secondary to severe ESLD. He chronically has a low sodium, but it has been much worse. He is transitioning to comfort care/end-of-life care. (3) Anemia Status: Chronic Assessment & Plan: Stable. Latest Vital Signs Vital Signs Date Time Temp Pulse Resp B/P (MAP) Pulse Ox O2 Delivery O2 Flow Rate FiO2 01/20/19 08:28 81 Room Air 01/20/19 08:02 97.6 16 96/59 (71) 01/20/19 07:35 01/19/19 19:19 87 Result Diagram: 01/19/19 0711 01/19/19 0558 Condition: No Change Disposition: SNF/NH Treatment Goals and Plan Patient requires residential for End of Life Care/Comfort Care and is ready for admission to Extended Care. Any change in condition is described below. ERNESTO GLYNN Jan 20, 2019 09:17
== END 2019-01-20 10:00 | DRG 433 ==
LOC: ER 09:37 → MED 12:42
PROVIDERS: ADMIT Internal Medicine; ATTEND Internal Medicine
DX: K70.40 Alcoholic hepatic failure without coma (principal); E87.1 Hypo-osmolality and hyponatremia; F10.288 Alcohol dependence with other alcohol-induced disorder; K70.10 Alcoholic hepatitis without ascites; D63.8 Anemia in other chronic diseases classified elsewhere; R53.1 Weakness; Z51.5 Encounter for palliative care; Z87.891 Personal history of nicotine dependence
CPT/HCPCS: 36415; 36416; 71045; 81001; 82040; 82247; 82310; 82374; 82435; 82565; 82947; 82948; 83735; 83930; 83935; 84075; 84132; 84155; 84295; 84300; 84450; 84460; 84520; 85025; 85610; 85730; 93005; 94667; 94668; 97161; 97166; J1940; J2270; J3480; J7030; P9047

== ENCOUNTER 2019-01-20 10:00 | Inpatient (IN) | payer SELFPAY ==
[2019-01-19 14:56] VITALS: BMI 26.6
[2019-01-20] MEDS ORDERED: BISACODYL 10 MG SUPP PR PRN (10:17)
[2019-01-20] MEDS ORDERED: SCOPOLAMINE 1.5 MG PATCH TD PRN ×2 (10:17→10:35)
[2019-01-20] MEDS ORDERED: MAGNESIUM HYDROXIDE* 30ML UDCP PO PRN (10:17)
[2019-01-20] MEDS ORDERED: PATCH REMOVAL 1 EA TP PRN (10:17)
[2019-01-20] MEDS ORDERED: LORazepam 2 MG/ML VIAL IM PRN (10:17)
[2019-01-20] MEDS ORDERED: PROMETHAZINE 25 MG/ML 1 ML AMP IM PRN (10:20)
--- NOTE | 2019-01-20 10:29 | Consultant Pharmacy Review ---
Software Developer Mid Level Review Medication Review Do All Mecications have a Diag: Yes Other General Cautions Patient is end of life care. Pneumococcal Vaccine HX Pneumo Vac ([id number]): No HX Pneumo Vac (Pneumovax): No Comments Regarding the Review * * * * Print * Help Lexicomp Interaction Analysis A = No known interaction C = Monitor therapy X = Avoid combination B = No action needed D = Consider therapy modification Drugs in this analysis: Ativan; Bisacodyl; Magnesium Hydroxide; Morphine (Systemic); Phenergan; Scopolamine (Systemic) * Drug-Drug Interactions * D Ativan (GLOBAL CREATIVE CHAIRMAN Depressants) Morphine (Systemic) (Opioid Agonists) D Bisacodyl Magnesium Hydroxide (Antacids) D Morphine (Systemic) (Opioid Agonists) Phenergan (GLOBAL CREATIVE CHAIRMAN Depressants) D Morphine (Systemic) (Opioid Agonists) Scopolamine (Systemic) (GLOBAL CREATIVE CHAIRMAN Depressants) C Ativan (GLOBAL CREATIVE CHAIRMAN Depressants) Phenergan (GLOBAL CREATIVE CHAIRMAN Depressants) C Ativan (GLOBAL CREATIVE CHAIRMAN Depressants) Scopolamine (Systemic) (GLOBAL CREATIVE CHAIRMAN Depressants) C Phenergan (Anticholinergic Agents) Scopolamine (Systemic) (Anticholinergic Agents) C Phenergan (GLOBAL CREATIVE CHAIRMAN Depressants) Scopolamine (Systemic) (GLOBAL CREATIVE CHAIRMAN Depressants) MATTHEW PALACIO Jan 20, 2019 10:29
[2019-01-20 10:51] VITALS: BP 75/46
[2019-01-20] MEDS: MORPHINE 2 MG/ML SYR SC PRN ×2 (12:00→23:07)
--- NOTE | 2019-01-20 19:07 | NUR ---
oxygen family requested pt have oxygen to "help him breathe." put a nasal cannula on pt at 1LPM. pt now sleeping
--- NOTE | 2019-01-20 19:16 | NUR ---
post closer family asking if there is a post closer available. Left a voice message for Bashir to come to floor tomorrow or call niece. phone number left on the voice message
--- NOTE | 2019-01-21 01:04 | Death Summary ---
Pronounced Date: Jan 21, 2019 Pronounced Time: 00:43 Preliminary Cause of : End stage liver failure Assessment: Alchoholic cirrhosis History of Present Illness Please see admission history and physical for details. RADHA LI DO Jan 21, 2019 01:04
[2019-01-23] MEDS ORDERED: PATCH REMOVAL 1 EA TP PRN (11:00)
--- NOTE | 2019-01-24 14:36 | ECF History & Physical ---
Transfer Summary (ECF/SWB) Problems: (1) Acute on chronic alcoholic liver disease Status: Acute Assessment & Plan: MELD 33, 45% 90 day survival. Viral hepatitis studies only showed antibodies to hepatitis A. Traffic Circuit Engineer that the ER spoke with didn't think there was any need for transfer. Patient reports that his last drink was around 12/19/18. Will watch with CIWA, but he does not appear to have acute withdrawal. There have been multiple discussions with the patient and his mother regarding his current status and prognosis. The patient and his mother understand his liver dysfunction appears to be progressing towards complete failure. Unfortunately, he would not be a candidate for evaluation for transplant as he is only 3-4 weeks abstinent from alcohol. It now appears he may be developing an acute respiratory infection/pneumonia. We had discussions regarding his options for ongoing care. At this point, he now wishes to transition to comfort care and "allow things to run their course". His mother is in agreement as well. [facility] be [facility] for [facility] care. (2) Hyponatremia Status: Acute Assessment & Plan: Secondary to severe ESLD. He chronically has a low sodium, but it has been much worse. He is transitioning to comfort care/end-of-life care. (3) Anemia Status: Chronic Assessment & Plan: Stable. Latest Vital Signs Vital Signs Date Time Temp Pulse Resp B/P (MAP) Pulse Ox O2 Delivery O2 Flow Rate FiO2 01/20/19 08:28 81 Room Air 01/20/19 08:02 97.6 16 96/59 (71) 01/20/19 07:35 01/19/19 19:19 87 Result Diagram: 01/19/19 0711 01/19/19 0558 Condition: No Change Disposition: SNF/NH Treatment Goals and Plan Patient requires long term for End of Life Care/Comfort Care and is ready for admission to Extended Care. Any change in condition is described below. ERNESTO GLYNN Jan 20, 2019 09:17 <Electronically signed by TOMASA HURTADO> D/ 6 6 6 CYNDI/SHAJI CC: NORBERTO
== END 2019-01-21 00:43 | disposition expired | DRG 951 ==
LOC: ECF 10:00
PROVIDERS: ADMIT Internal Medicine; ATTEND Internal Medicine
DX: Z51.5 Encounter for palliative care (principal); E87.1 Hypo-osmolality and hyponatremia; F10.288 Alcohol dependence with other alcohol-induced disorder; K70.40 Alcoholic hepatic failure without coma; K70.30 Alcoholic cirrhosis of liver without ascites; D63.8 Anemia in other chronic diseases classified elsewhere
CPT/HCPCS: J2060; J2270